=== PATIENT | male | born 1955 | race Caucasian/White ===

== ENCOUNTER → 2018-01-28 | Outpatient (CLI) | payer OTHER ==
[2016-10-27 11:06] VITALS: BMI 31.1
[~2018-01-28] MED LIST: ALB18R INH; AMOX-559 PO; ASPI-1471 PO; ASPI81TA94 PO; ATR80PT PO; AZAT50TA25 PO; BAC PO; BUDE10.25 IH; BUDE10.25 INH; CEFU500T10 PO; CLOP75TA PO; CYCL10TA29 PO; DOC100 PO; ESZO1TAB16 PO; FAMO20TA28 PO; FLUT16SP19 NS; FOL1 PO; FURO-45 PO; GABA-549 PO; GLIP-152 PO; HYDR-4309 PO; IPRA4AER IH; IPRA4AER INH; KET10 PO; LEVE-14 PO; LEVO-85 PO; LEVO750T25 PO; LEVO750T27 PO; LISI2.5T60 PO; LOR5 PO; MECL25TA9 PO; METF-1 PO; METH-541 PO; METH2.5T43 PO; METO25TA23 PO; MULT1CAP41 PO; NIT4 SL; NYST15CR32 TP; OMEG-11 PO; PANT40TA65 PO; PRE1 PO; PRE5 PO; PRED-1 PO; PRED-317; PROSED DS PO; SAXA1TBM6 PO; SAXA5TAB4 PO; SITA100T PO; SULF-198 PO; VALA500T66 PO; ZOLP-358 PO
== END ==
LOC: LAB 10:32
PROVIDERS: ATTEND Internal Medicine Rheumatology
DX: M31.30 Wegener's granulomatosis without renal involvement (principal); Z79.899 Other long term (current) drug therapy
CPT/HCPCS: 36415; 82040; 82247; 82310; 82374; 82435; 82565; 82947; 84075; 84132; 84155; 84295; 84450; 84460; 84520; 85027; 85651; 86140

== ENCOUNTER → 2018-02-06 | Outpatient (CLI) | payer OTHER ==
[2016-10-27 11:06] VITALS: BMI 31.1
--- NOTE | 2018-02-06 13:38 | RADIOLOGY IMAGING REPORT ---
FACILITY: [facility] PATIENT NAME: Harsh Melissa : 1955 MR: [id number] V: [id number] EXAM DATE: [id number] ORDERING PHYSICIAN: SHANNA MITCHELL TECHNOLOGIST: Location: [facility] - [place], [place] Patient: Harsh Melissa : 1955 Visit/Account:[id number] Date of Sevice: 02/06/2018 Exam type: LUMBAR SPINE 2 OR 3 VIEW History: low back pain, fall three weeks ago Comparison: July 19, 2007. Findings: Five nonrib-bearing lumbar-type vertebral bodies present. There is no evidence of acute fractures or subluxations. There is mild disc space narrowing at L5-S1. There is spondylolysis at L5 with a min imal 3 mm anterior listhesis of L5 with respect S1. No evidence of acute fractures. Incidentally no faye are vascular calcifications in the abdominal aorta IMPRESSION: 1. Mild degenerative changes the lumbar spine as described with no evidence of acute fracture. Report Dictated By: Mirna Morelos MD at 02/06/2018 1:31 PM Report E-Signed By: Mirna Morelos MD at 02/06/2018 1:33 PM WSN:[id number]
== END ==
LOC: LAB 11:24
PROVIDERS: ATTEND Internal Medicine
DX: M31.30 Wegener's granulomatosis without renal involvement (principal); I10 Essential (primary) hypertension; E78.5 Hyperlipidemia, unspecified; E11.9 Type 2 diabetes mellitus without complications
CPT/HCPCS: 36415; 72100; 82040; 82247; 82310; 82374; 82435; 82565; 82947; 83036; 84075; 84132; 84155; 84295; 84450; 84460; 84520

== ENCOUNTER 2018-02-20 13:45 | Outpatient (RCR) | payer OTHER ==
[2016-10-27 11:06] VITALS: BMI 31.1
--- NOTE | 2018-02-08 10:28 | PT INITIAL EVALUATION ---
MEDICAL DIAGNOSIS: Lumbosacral pain, Branden's Granulomatosis TREATMENT DIAGNOSIS: Lumbar pain, Generalized Deconditioning DATE OF ONSET: 01/17/18 SUBJECTIVE: Harsh is a 62 year-old male presenting to physical therapy following the onset of low back pain over the last three weeks. Pt reports that he slipped in his driveway and following had back pain rated at a 7/10. He initially went to the chiropractor which seemed to not help his pain. He was then referred to a physician for imaging which revealed no fracture. Pt is currently avoiding all pain increasing positions such as bending forward to tie his shoes, lifting any objects or any quick movements with his back. Pain is rated at 2/10 currently spanning across his low back and to his R PSIS. Pain is described as achy and stiff feeling, but is occasionally sharp and goes into his hip. Pt has a history of Maryan's Granulomatosis, as well as several cardiac problems, DM and a history of seizures. Pt reports gradual weight gain with inactivity. Pt was previously in the cardiac rehabilitation program and reported improved cardiac function, as well as glucose control with aerobic exercise. 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 ROM: Lumbar ROM: Flexion: full without pain, ext: minimal restrictions without pain, R SB: minimally restricted with pain, L SB: full without pain, B Rotation : full without pain Special Tests: Ivett Lumbar Screen: Flexion: pain moved laterally to R hip with change from dull to sharp, extension: pain centralized to L3 region. Gait: Pt ambulates with mild reverse Trendelenburg gait with lateral trunk movement. ASSESSMENT: Pt shows signs and symptoms consistent with generalized deconditioning as well as posterior lumbar derangement. Physical therapy is indicated for this patient to improve the above listed deficits to improve pt mobility and function with ADL's. Short Term Goals In 3 weeks pt will centralize pain to the lumbar spine only without radiation for increased function with ADL's. In 6 weeks pt will have no low back pain for improved function with ADL's. In 6 weeks pt will be independent with HEP for management of lumbar mobility and function for maintenance of functional status. Patient's Goals Decrease pain, improve mobility PLAN: Patient to be seen for Manual Therapy/STM/MET Strengthening/condition Ice/Heat Range of Motion Spinal Stabilization Ultrasound Stretching Iontophoresis Neuromuscular Re-ed Closed Chain Program Electrical Stim Posture/Body mechanics Gait Trg/Balance Trg Biofeedback Home Exercise Program Mech./Manual Traction Therapeutic Activities Pelvic Floor 3x/Week for 6 Weeks If you have any questions, comments, or concerns about this report or plan, please contact me at . Thank you, Evonne Caldwell, PT, DPT, CLT MTDD
--- NOTE | 2018-03-08 11:26 | PT PLAN OF CARE ---
Physician: Yung Campoverde MD Patient is being seen: 2-3x/Week Therapist: Evonne Caldwell, PT, DPT, CLT Medical Diagnosis: Lumbosacral pain, Branden's Granulomatosis Treatment Diagnosis: Lumbar pain, Generalized Deconditioning Date of Onset: 01/17/18 Date of Initial Evaluation: 02/07/18 Date patient was last seen: 02/20/18 Number of treatments: 5 Number of cancellations/No shows: 0 INTERVENTIONS: Manual Therapy/STM/MET Strengthening/condition Ice/Heat Range of Motion Spinal Stabilization Ultrasound Stretching Iontophoresis Neuromuscular Re-ed Closed Chain Program Electrical Stim Posture/Body mechanics Gait Trg/Balance Trg Biofeedback Home Exercise Program Mech./Manual Traction Therapeutic Activities Pelvic Floor GOALS: In 3 weeks pt will centralize pain to the lumbar spine only without radiation for increased function with ADL's. In 6 weeks pt will have no low back pain for improved function with ADL's. In 6 weeks pt will be independent with HEP for management of lumbar mobility and function for maintenance of functional status. PATIENT'S GOAL: Decrease pain, improve mobility Status of Patient's Goals: 3/3 MET Patient Compliance: Good Prognosis: Good Reasons for discharge from therapy: Ross is to discharge from physical therapy at this time secondary to patient preference as well as completion of 3/3 functional goals. At the time of discharge pt reported no pain with return to function with ADL's. Pt is to continue with HEP if any pain persists or returns as well as maintain postural correction awareness with ADL's. Posture: Pt has decreased lumbar curve with forward trunk lean in static stance. ROM: Lumbar ROM: Full in all ROM without pain If you have any questions or concerns, please feel free to contact me at . Thank you, Evonne Caldwell, PT, DPT, CLT MTDD
== END 2018-02-20 18:00 | disposition home or self-care (01) ==
LOC: PT 13:45
PROVIDERS: ATTEND Internal Medicine
DX: M31.30 Wegener's granulomatosis without renal involvement (principal); M54.5 Low back pain; E11.9 Type 2 diabetes mellitus without complications; Z86.69 Personal history of other diseases of the nervous system and sense organs
CPT/HCPCS: 97162

== ENCOUNTER → 2018-06-10 | Outpatient (CLI) | payer OTHER ==
[2016-10-27 11:06] VITALS: BMI 31.1
[~2018-06-10] MED LIST changes: +METF500T4 PO
== END ==
LOC: LAB 08:37
PROVIDERS: ATTEND Internal Medicine Rheumatology
DX: M31.30 Wegener's granulomatosis without renal involvement (principal); Z79.899 Other long term (current) drug therapy
CPT/HCPCS: 36415; 82040; 82247; 82310; 82374; 82435; 82565; 82947; 83516; 84075; 84132; 84155; 84295; 84450; 84460; 84520; 85651; 86140

== ENCOUNTER → 2018-06-10 | Outpatient (CLI) | payer OTHER ==
[2016-10-27 11:06] VITALS: BMI 31.1
[2018-06-10 09:21] LABS: PLATELET COUNT, AUTOMATED 126 K/uL (150-450)
== END ==
LOC: LAB 08:34
PROVIDERS: ATTEND Internal Medicine
DX: I35.0 Nonrheumatic aortic (valve) stenosis (principal); I10 Essential (primary) hypertension; E78.5 Hyperlipidemia, unspecified; R56.9 Unspecified convulsions; M31.30 Wegener's granulomatosis without renal involvement; E11.9 Type 2 diabetes mellitus without complications
CPT/HCPCS: 81001; 82465; 83036; 83718; 84443; 84478; 85025

== ENCOUNTER 2018-07-06 07:32 | Emergency (ER) | payer OTHER ==
[2016-10-27 11:06] VITALS: Wt 93.0 kg
--- NOTE | 2018-07-06 07:37 | ER Report ---
History and Physical Time Seen By MD: 07:50 HPI/ROS CHIEF COMPLAINT: Right-sided neck pain HISTORY OF PRESENT ILLNESS: Patient is a 62-year-old male who presents the emergency department complaining of right-sided neck pain worse with movement. Patient states symptoms began approximately 3 days ago but his significant discomfort started last evening into this morning. He was seen by his primary care provider for routine health check yesterday but because the neck pain was not as severe so he did not mention it. Patient states pain radiates somewhat up the neck into the base of the skull on the right side. He denies any numbness or tingling down into the left arm. Denies any traumatic injury. States he's had similar episodes of neck pain in the past but not as severe. He denies any chest pain or shortness of breath at this time. Denies any abdominal pain. REVIEW OF SYSTEMS: Respiratory: No cough, no dyspnea. Cardiovascular: No chest pain, no palpitations. Gastrointestinal: No vomiting, no abdominal pain. Musculoskeletal: No back pain. Right-sided posterior neck pain Allergies: Coded Allergies: metformin (Verified Allergy, Severe, Lactic acidosis, 07/06/18) 10/24/16 Home Meds Active Scripts Cyclobenzaprine Hcl (CYCLOBENZAPRINE HCL) 10 Mg Tablet, 10 MG PO TID for Muscle Relaxant, #9 TAB 0 Refills Prov:SWATI SKINNER MD 07/06/18 Oxycodone Hcl/Acetaminophen (PERCOCET 5-325 MG TABLET) 1 Each Tablet, 1 EACH PO Q6H for PAIN, #12 TAB 0 Refills Prov:SWATI SKINNER MD 07/06/18 Gabapentin (GABAPENTIN) 300 Mg Capsule, 300 MG PO BID Y for PAIN, #180 CAPSULE 1 Refill Prov:SHANNA MITCHELL MD 06/27/18 Prednisone 10 Mg Tab (PREDNISONE 10 MG TAB) 10 Mg Tablet, 9 MG PO QDAY, #1 TAB Prov:SHANNA MITCHELL MD 06/14/18 Metformin Hcl (METFORMIN HCL ER) 500 Mg Tab.er.24, 2 TAB PO QDAY, #60 TAB 3 Refills Prov:SHANNA MITCHELL MD 06/14/18 Sitagliptin Phosphate (JANUVIA) 100 Mg Tablet, 100 MG PO QDAY, #90 TAB 4 Refills Prov:SHANNA MITCHELL MD 03/25/18 Atorvastatin (LIPITOR) 80 Mg Tab, 1 TAB PO QDAY, #90 TAB 3 Refills Prov:SHANNA MITCHELL MD 02/06/18 Ipratropium/Albuterol Sulfate (COMBIVENT RESPIMAT INHAL SPRAY) 4 Gm Aer.w.adap, 1 PUFF IH QID Y for SHORTNESS OF BREATH, #2 INHALER 6 Refills Prov:SHANNA MITCHELL MD 11/08/17 Reported Medications Clopidogrel Bisulfate (PLAVIX) 75 Mg Tablet, 1 TAB PO QDAY, TAB 07/06/18 Metoprolol Succinate (METOPROLOL SUCCINATE) 25 Mg Tab.er.24h, 1 TAB PO QDAY, TAB 11/07/17 Levetiracetam (KEPPRA) 500 Mg Tablet, 500 MG PO BID, TAB 07/11/17 Glipizide (GLIPIZIDE) 5 Mg Tablet, 5 MG PO BID 07/11/17 Sulfamethoxazole/Trimet 800-160 Mg Tab (BACTRIM DS TABLET) 1 Each Tablet, 1 TAB PO M,W,F, TAB 07/11/17 Azathioprine (AZATHIOPRINE) 50 Mg Tablet, 50 MG PO DIRECTED 50 mg 2 tablets in the morning and 1.5 tablets in the evening 07/11/17 Aspirin (ASPIRIN) 81 Mg Tab.chew, 81 MG PO QDAY, TAB.CHEW 07/11/17 Discontinued Reported Medications Pantoprazole Sodium (PANTOPRAZOLE SODIUM) 40 Mg Tablet.dr, 40 MG PO QDAY, TAB.SR 07/11/17 Azathioprine (AZATHIOPRINE) 50 Mg Tablet, 100 MG PO QPM 07/11/17 Discontinued Scripts Budesonide/Formoterol Fumarate (SYMBICORT 80-4.5 MCG INHALER) 10.2 Gm Hfa.aer.ad , 2 PUFF IH BID, #1 INHALER 6 Refills Prov:SHANNA MITCHELL MD 11/07/17 Past Medical/Surgical History Patient has a past medical history for Branden's granulomatosis with polyangiitis and he is being followed by rheumatology currently on azathioprine and prednisone. History of obstructive sleep apnea currently using CPAP with oxygen. History of pulmonary hypertension, history of severe aortic valve stenosis is gone through TAVR in March 2018. He also has heart block and underwent permanent pacer placement. History of coronary artery disease with CABG in 2014 early undergoing cardiac rehabilitation. History of non-insulin- dependent diabetes, diabetic neuropathy, congestive heart failure with diastolic dysfunction, hyperlipidemia Hx Smoking: No Smoking Status: Former Smoker Exposure to Second Hand Smoke?: No Hx Substance Use Disorder: No Hx Alcohol Use: Yes Constitutional Vital Sign - Last 24 Hours 07/06/18 07/06/18 07/06/18 07/06/18 07:38 07:45 08:00 08:15 Temp 98.7 Pulse 85 Resp 18 B/P (MAP) 148/89 152/93 (112) 145/89 (107) 140/83 (102) Pulse Ox 90 90 90 O2 Delivery Room Air 07/06/18 07/06/18 08:30 08:45 B/P (MAP) 139/88 (105) 143/85 (104) Pulse Ox 85 87 Physical Exam General Appearance: The patient is alert, has no immediate need for airway protection and no current signs of toxicity. Eyes: Pupils equal and round no injection. Respiratory: Chest is non tender, lungs are clear to auscultation. Cardiac: regular rate and rhythm Musculoskeletal: Neck: Neck is noted for some stiffness particularly along the right paracervical group and right trapezius. No midline tenderness or bony tenderness appreciated Extremities have full range of motion and are non tender. Skin: No rashes or lesions. Medical Decision Making ED Course/Re-evaluation ED Course 07/06/2018 7:55:55 am patient with right-sided neck pain plan will be imaging of cervical spine CT. We'll give one Percocet for pain at this time. Decision to Disposition Date: Jul 06, 2018 Decision to Disposition Time: 08:48 Depart Departure Latest Vital Signs Vital Signs Date Time Temp Pulse Resp B/P (MAP) Pulse Ox O2 Delivery O2 Flow Rate FiO2 07/06/18 08:45 143/85 (104) 87 07/06/18 07:38 98.7 85 18 Room Air Impression: Primary Impression: Neck pain Condition: Improved Disposition: HOME OR SELF-CARE Referrals: SHANNA MITCHELL MD (PCP) 2 Days if symptoms persist New Scripts Cyclobenzaprine Hcl (CYCLOBENZAPRINE HCL) 10 Mg Tablet 10 MG PO TID for Muscle Relaxant, #9 TAB 0 Refills Prov: SWATI SKINNER MD 8/11/18 Oxycodone Hcl/Acetaminophen (PERCOCET 5-325 MG TABLET) 1 Each Tablet 1 EACH PO Q6H for PAIN, #12 TAB 0 Refills Prov: SWATI SKINNER MD 07/06/18 Patient Instructions: Acute Neck Pain (ED) SWATI SKINNER MD Jul 06, 2018 07:37
[2018-07-06] MEDS ORDERED: CLOP75TA43 PO (07:43)
--- NOTE | 2018-07-06 08:40 | RADIOLOGY IMAGING REPORT ---
FACILITY: [facility] [place] PATIENT NAME: Harsh Melissa : 1955 MR: [id number] V: [id number] EXAM DATE: ORDERING PHYSICIAN: SWATI SKINNER TECHNOLOGIST: Location: [facility] Patient: Harsh Melissa : 1955 Visit/Account:[id number] Date of Sevice: 07/06/2018 EXAMINATION: CT cervical spine without IV contrast HISTORY: Neck pain for 3 days. COMPARISON: CT cervical spine from 02/07/2016. TECHNIQUE: Axial images were obtained from the skull base through the upper thoracic spine without I V contrast administration. Coronal and sagittal reformatted images were obtained from the axial [facility] e data. One of the following dose optimization techniques was utilized in the performance of this exam: Autom ated exposure control; adjustment of the mA and/or kV according to the patient's size; or use of an i terative reconstruction technique. Specific details can be referenced in the facility's radiology C T exam operational policy. FINDINGS: Alignment: Normal. Cranio-cervical junction: Negative. Vertebral bodies: Negative. Posterior elements: Negative. Hardware: None. Disc spaces: Mild anterior bony spurring at C5-6. There is no obvious disc herniation by CT. Soft tissues: Atherosclerotic calcifications of the great vessels and bilateral carotid bulbs. Pacema ker wires partly visualized in the left upper chest. Visualized upper chest: Negative. IMPRESSION: 1. No acute fracture of the cervical spine. 2. Mild degenerative disc disease at C5-6, unchanged. Report Dictated By: Gladys Hdz MD at 07/06/2018 8:27 AM Report E-Signed By: Gladys Hdz MD at 07/06/2018 8:36 AM WSN:[id number]
[2018-07-06 08:45] VITALS: BP 143/85
[2018-07-06] MEDS ORDERED: CYCL10TA29 PO (08:50)
[2018-07-06] MEDS ORDERED: OXYC-865 PO (08:50)
== END 2018-07-06 08:55 | disposition home or self-care (01) ==
LOC: ER 07:35
DX: M54.2 Cervicalgia (principal); I11.0 Hypertensive heart disease with heart failure; I50.30 Unspecified diastolic (congestive) heart failure; E11.9 Type 2 diabetes mellitus without complications; G47.33 Obstructive sleep apnea (adult) (pediatric); I25.10 Atherosclerotic heart disease of native coronary artery without angina pectoris; E78.5 Hyperlipidemia, unspecified; Z95.1 Presence of aortocoronary bypass graft; Z95.0 Presence of cardiac pacemaker; Z87.891 Personal history of nicotine dependence; Z79.82 Long term (current) use of aspirin; Z79.84 Long term (current) use of oral hypoglycemic drugs; Z79.899 Other long term (current) drug therapy
CPT/HCPCS: 72125; 99284

== ENCOUNTER 2018-07-15 09:48 | Outpatient (RCR) | payer OTHER ==
[2016-10-27 11:06] VITALS: BMI 31.1
[2018-04-17 15:23] VITALS: BP_SYST 112; BP_SYST 124; BP_DIAS 72; BP_DIAS 78
--- NOTE | 2018-04-17 16:01 | CARDIAC REHAB PLAN OF CARE ---
Physician: MD [facility]in[facility] Patient is being seen: Radha Yulisa Medical Diagnosis: CABG x3; PTCA x2; TAVR; Pacemaker Date of Initial Evaluation: 04/17/18 INTERVENTIONS: SHORT TERM GOALS Short Term Goals Due Date: 05/18/18 Short Term Goals: Over the next month, it will be the patient's goal to increase exercise time and overall tolerance. He will begin with a total of at least 20 minutes of continuous exercise and progress towards achieving the recommended 150 min/week. During this first month he should aim to maintain his HR between 95-110bpm so as not to push his cardiovascular system too hard following surgery. He will be limited to using the treadmill, walking the track , or cycling on the upright bike. After this month his HR target zone will be re-evaluated. Our second primary goal will be to help encourage and support the patient's dietary change. Since his surgery he has drastically changed his caloric consumption towards healthier nutritional options. I foresee this as a difficult task to maintain knowing his previous behavior and relatively unhealthy support system at home. We will do our best to help support this behavior change and provide any information he needs in regards to nutrition. Short Term Goals Met: Short Term Goals Not Met Due To: CLINICAL MATERIAL HANDLER GOALS Jail Goal Due Date: 06/17/18 Bond Writer Goals: residential goal through this program include increasing exercise duration towards a total of 150 min/week. Currently, he is exercising at an average of 2.5 METs and we hope to have the patient progress to the 3-6 MET range within the next few months. It was discussed with the patient that his goal during exercise here should be to progress a little bit every session --whether it is adding an additional minute to his exercise routine or increasing the resistance 0.5%. He should always try to progress to reap the maximal benefits. During this program it is also our goal to help instill and promote healthy behavior change at home. This includes but is not limited to leisure time physical activity, healthy nutritional options, and stress management. Bond Writer Goals Met: Bond Writer Goals Not Met Due To: PATIENT'S GOALS Patient Goals Due Date: 05/18/18 Patient Goals: Over the course of this program the patient has two primary goals. 1. To lose weight. He is currently 203lbs and aims to weigh 180lbs. This can easily be attained by his drastic healthier diet change and with the increase he will experience in physical activity here at cardiac rehab. 2. To be able to fernandez this next fall.He currently gets breathless while climbing stairs and would like to have this breathlessness subside so he can hike whilst elk hunting this fall. Patient Goals Met: Patient Goals Not Met Due To: Cardiac Rehabilitation Plan of Care Comment: Our plan for the current patient will be to encourage and provide support to help instill healthy behavior roll changer the next 3 months. During his sessions we will continue to monitor BP, HR, and SPO2 as well as his subjective feedback in order to create and individualized exercise prescription. We will use this information to help direct him towards exercise progression in each visit by promoting increases in intensity, time, or overall duration. We will provide him with information towards increasing his understanding of leisure time physical activity and healthy dietary options. VICTOR MANUEL
[2018-04-24 13:10] VITALS: BP_SYST 115; BP_SYST 126; BP_DIAS 60; BP_DIAS 74
[2018-04-26 13:16] VITALS: BP 134/68
[2018-04-26 13:17] VITALS: BP 120/70
[2018-04-29 13:24] VITALS: BP_SYST 120; BP_SYST 130; BP_DIAS 64; BP_DIAS 68
[2018-05-03 11:45] VITALS: BP_SYST 120; BP_SYST 128; BP_DIAS 70; BP_DIAS 78
[2018-05-06 12:58] VITALS: BP 118/66
[2018-05-06 12:59] VITALS: BP 118/68
[2018-05-08 11:16] VITALS: BP 128/76
[2018-05-08 11:21] VITALS: BP 128/74
[2018-05-13 13:38] VITALS: BP 120/72
[2018-05-13 13:39] VITALS: BP 120/68
[2018-05-15 13:17] VITALS: BP 122/72
[2018-05-15 13:18] VITALS: BP 122/68
[2018-05-22 11:41] VITALS: BP 122/66
[2018-05-22 11:42] VITALS: BP 132/80
[2018-05-24 13:13] VITALS: BP 120/72
[2018-05-24 13:14] VITALS: BP 124/70
[2018-05-27 13:12] VITALS: BP 122/72
[2018-05-27 13:13] VITALS: BP 122/72
[2018-05-31 13:43] VITALS: BP 128/68
[2018-05-31 13:44] VITALS: BP 134/80
--- NOTE | 2018-06-04 13:13 | CARDIAC REHAB PLAN OF CARE ---
Physician: Walter Bean MD Patient is being seen: Yulisa Garcia Medical Diagnosis: CABG x3; PTCA x2; TAVR; Pacemaker Date of Initial Evaluation: 04/17/2018 Date patient was last seen: 05/31/2018 Number of treatments: 13 INTERVENTIONS: SHORT TERM GOALS Short Term Goals Due Date: 07/05/18 Short Term Goals: Over the next month, the patient's goal will be to continue increasing total exercise duration per session. He will try to achieve on average 50 min/session so as to attain the recommended 150min/week. To do this we will also encourage more time spent walking the track, trying to achieve at least 12 laps/session. At some point during this past month, the patient also stopped using the treadmill and has started using the NuStep instead. We will encourage him to go back to the treadmill, or at least spend more time on the bike than the NuStep in comparison. We will also touch base with the patient more frequently on how his dietary behavior change is going and provide any additional education or support as needed. Short Term Goals Met: Patient has been able to maintain at least 20 minutes of continuous aerobic exercise with a total achievement of 40 min/session. If he maintains this level of exercise then this will total to 120 minutes/week which is close to our net goal which is 150 minutes/week. During his exercise, he does a good job at maintaining his HR goal between 95- 110bpm, as he is averaging his HR near 103-108bpm. Short Term Goals Not Met Due To: Currently, we are unaware of any behavior change as to improving dietary intake. Also, the patient has not been able to maintain 40 min/session regularly. For a week he has backed his total exercise time back to 20-30 minutes until more recently when he has been achieving 40 minutes again. He also was typically taking 10-12 laps on the track during exercise sessions, but has recently backed down to 5 laps/session. 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 Currently, he is exercising at an average of 2.5 METs and we hope to have the patient progress to the 3-6 MET range within the next few months. It was discussed with the patient that his goal during exercise here should be to progress a little bit every session --whether it is adding an additional minute to his exercise routine or increasing the resistance 0.5%. He should always try to progress to reap the maximal benefits. During this program it is also our goal to help instill and promote healthy behavior change at home. This includes but is not limited to leisure time physical activity, healthy nutritional options, and stress management. Wastewater Design Engineer Goals Met: Mcfp Goals Not Met Due To: PATIENT'S GOALS Patient Goals Due Date: 07/05/18 Patient Goals: Over the course of this program the patient has two primary goals. 1. To lose weight. He is currently 203lbs and aims to weigh 180lbs. This can easily be attained by his drastic healthier diet change and with the increase he will experience in physical activity here at cardiac rehab. 2. To be able to fernandez this next fall.He currently gets breathless while climbing stairs and would like to have this breathlessness subside so he can hike whilst elk hunting this fall. Patient Goals Met: No patient goal information available at this time. We will ask the patient upon his next visit how his weight loss goals are progressing as well as any feedback he has on his own perception towards his ability to fernandez this fall. Patient Goals Not Met Due To: No patient goal information available at this time. Cardiac Rehabilitation Plan of Care Comment: Over the next month, we will continue to evaluate the patient's progress regularly so as to develop an individualized exercise prescription and continue along the path towards progression. We will use information gather at each sessions including BP, HR, SPO2, and exercise logs to help facilitate this process. Our primary goal will be to help encourage the patient to continue pushing himself a little bit further every session and to not take the easy route to exercise. We will need to educate him along this process that progression is parsons to heart health. In order to fulfill these needs we will need to develop a professional relationship with the patient so as to see where his needs need to be met. VICTOR MANUEL
[2018-06-05 13:20] VITALS: BP_SYST 122; BP_SYST 124; BP_DIAS 60; BP_DIAS 72
[2018-06-07 13:26] VITALS: BP 120/70
[2018-06-07 13:27] VITALS: BP 126/78
[2018-06-12 13:27] VITALS: BP 128/68
[2018-06-12 13:28] VITALS: BP 126/70
[2018-06-14 13:29] VITALS: BP 128/70
[2018-06-14 13:30] VITALS: BP 120/72
[2018-06-17 13:03] VITALS: BP_SYST 122; BP_SYST 132; BP_DIAS 80; BP_DIAS 82
[2018-06-19 13:24] VITALS: BP 120/64
[2018-06-19 13:25] VITALS: BP 122/74
[2018-06-21 13:36] VITALS: BP 128/82
[2018-06-22 16:40] VITALS: BP 130/82
[2018-06-24 16:41] VITALS: BP 126/68
[2018-06-24 16:44] VITALS: BP 130/82
[2018-06-26 15:49] VITALS: BP 124/94
[2018-06-26 15:50] VITALS: BP 138/72
[2018-06-28 13:11] VITALS: BP 116/64
[2018-06-28 13:12] VITALS: BP 128/76
[2018-07-01 13:11] VITALS: BP_SYST 122; BP_DIAS 66; BP_DIAS 78
--- NOTE | 2018-07-02 13:06 | CARDIAC REHAB PLAN OF CARE ---
Physician: MD [place] Patient is being seen: Yulisa Garcia Medical Diagnosis: CABG x3; PTCA x2; Pacemaker; TAVR Date of Initial Evaluation: 04/17/18 Date patient was last seen: 07/01/18 Number of treatments: 18 INTERVENTIONS: SHORT TERM GOALS Short Term Goals Due Date: 08/02/18 Short Term Goals: Over the next month, the patient's goal will be to continue increasing total exercise duration per session pending his SPO2 remains sufficient. He will try to achieve on average 50 min/session so as to attain the recommended 150min/week. Currently, the patient does a decent work out on the NuStep and enjoys using his arms with the exercise so we will continue with this mode of aerobic activity. To aid in his SPO2 deficit we will to continue educating him on proper breathing techniques. It has also been recommended to the patient that he goes to see his physician to check on his autoimmune disease status to see if that has affected his respiration. Lastly, we will also touch base with the patient more frequently on how his dietary behavior change is going and provide any additional education or support as needed. Short Term Goals Met: Patient has not met any of the fore-mentioned goals for exercise duration. He has maintained in his proper target heart rate zone (95- 110bpm) during exercise--averaging between 104-115. Short Term Goals Not Met Due To: Patient has been having difficulty with energy and shortness of breath the past three weeks. His SPO2 has been low and he has resorted to special breathing techniques and supplemental O2 to remain sufficient SPO2 levels during exercise. Due to this set back, it has been difficult for him to achieve his previous exercise duration goals. Patient also has been struggling to maintain a healthy diet the past month as family has been visiting and cooking for him. ALF GOALS Skilled Nursing Goal Due Date: 08/02/18 Skilled Nursing Goals: terminal gauger goal through this program include increasing exercise duration towards a total of 150 min/week. Currently, he is exercising at an average of 2.5 METs and we hope to have the patient progress to the 3-6 MET range within the next few months. It was discussed with the patient that his goal during exercise here should be to progress a little bit every session --whether it is adding an additional minute to his exercise routine or increasing the resistance 0.5%. He should always try to progress to reap the maximal benefits. During this program it is also our goal to help instill and promote healthy behavior change at home. This includes but is not limited to leisure time physical activity, healthy nutritional options, and stress management. Skilled Nursing Goals Met: The patient has gradually progress in total exercise duration. He is not achieving between 30-45 minutes/session and we will continue progressing time towards our goal of 150min/week (50 min/session). He has also achieved on average a MET level of 3.2-3.5. Which is within our target range. Now we will continue to progress closer to the 6 MET selena. Accountant Machine Processing Goals Not Met Due To: The patient has not been successful at developing healthy behavior change. We will continue to provide education and support on the topic, primarily addressing diet and breathing techniques. PATIENT'S GOALS Patient Goals Due Date: 08/02/18 Patient Goals: Over the course of this program the patient has two primary goals. 1. To lose weight. He is currently 203lbs and aims to weigh 180lbs. This can easily be attained by his drastic healthier diet change and with the increase he will experience in physical activity here at cardiac rehab. 2. To be able to fernandez this next fall.He currently gets breathless while climbing stairs and would like to have this breathlessness subside so he can hike wilst [employer] hunting this fall. Patient Goals Met: No goals have been met thus far. Patient Goals Not Met Due To: We are unaware of any weight loss on behalf of the patient, but will follow up at the next session. The patient has been continuing to hike and fish, but reports unreasonable breathlessness and lack of energy. We need to continue improving respiratory behaviors in order for him to improve his stamina for fall hunting season. Cardiac Rehabilitation Plan of Care Comment: Over the next month our plan will primarily be to educate our patient. We need to improve his understanding of breathing techniques and energy conservation in order to improve energy and facilitate his hunting/hiking ability for the fall. We will also supplement this with information on healthy diet and behavior change to help his heart and his energy. We will also make it a primary goal to continue improving in 1. duration of exercise towards 150min/week (50min/session) and once that is achieved 2. exercise intensity (improving from 3.5 METs). We will continue to individualize his exercise program by developing it based on his achieved HR, SPO2, BP, and ECG during exercise. VICTO RMANUEL
[2018-07-03 13:14] VITALS: BP_SYST 122; BP_DIAS 66; BP_DIAS 78
[2018-07-12 13:07] VITALS: BP_SYST 120; BP_SYST 138; BP_DIAS 66; BP_DIAS 82
[~2018-07-15 09:48] MED LIST changes: +CLOP75TA43 PO; +OXYC-865 PO
[2018-07-15 13:05] VITALS: BP_SYST 106; BP_SYST 126; BP_DIAS 76; BP_DIAS 78
== END 2018-07-16 ==
LOC: CARD 09:48
PROVIDERS: ATTEND Internal Medicine Cardiovascular Disease
DX: I50.9 Heart failure, unspecified (principal); I27.9 Pulmonary heart disease, unspecified; I25.2 Old myocardial infarction; Z95.1 Presence of aortocoronary bypass graft; Z95.5 Presence of coronary angioplasty implant and graft; Z95.0 Presence of cardiac pacemaker; R56.9 Unspecified convulsions
CPT/HCPCS: 93798

== ENCOUNTER 2018-08-14 10:00 | Outpatient (RCR) | payer OTHER ==
[2016-10-27 11:06] VITALS: BMI 31.1
[2018-07-17 14:27] VITALS: BP 122/70
[2018-07-17 14:28] VITALS: BP 120/76
[2018-07-22 13:27] VITALS: BP 124/70
[2018-07-22 13:28] VITALS: BP 140/80
[2018-07-24 13:48] VITALS: BP 112/68
[2018-07-24 13:49] VITALS: BP 122/78
[2018-07-26 13:34] VITALS: BP_SYST 116; BP_SYST 124; BP_DIAS 76; BP_DIAS 78
[2018-07-31 13:37] VITALS: BP_SYST 124; BP_SYST 130; BP_DIAS 74
[2018-08-09 12:50] VITALS: BP 122/62
[2018-08-09 12:52] VITALS: BP 106/62
[2018-08-12 12:42] VITALS: BP 132/72
[2018-08-12 12:43] VITALS: BP 138/78
[2018-08-14 13:12] VITALS: BP 124/70
[2018-08-14 13:13] VITALS: BP 118/62
== END 2018-08-14 15:41 | disposition home or self-care (01) ==
LOC: CARD 10:00
PROVIDERS: ATTEND Internal Medicine Cardiovascular Disease
DX: I50.9 Heart failure, unspecified (principal); I27.9 Pulmonary heart disease, unspecified; I25.2 Old myocardial infarction; Z95.1 Presence of aortocoronary bypass graft; Z95.5 Presence of coronary angioplasty implant and graft; Z95.0 Presence of cardiac pacemaker; R56.9 Unspecified convulsions
CPT/HCPCS: 93798

== ENCOUNTER → 2018-09-24 | Outpatient (CLI) | payer OTHER ==
[2016-10-27 11:06] VITALS: BMI 31.1
[~2018-09-24] MED LIST changes: -HYDR-4309 PO; +HYDR-653 PO
[2018-09-24 11:28] LABS: PLATELET COUNT, AUTOMATED 143 K/uL (150-450)
== END ==
LOC: LAB 11:02
PROVIDERS: ATTEND Internal Medicine
DX: E78.5 Hyperlipidemia, unspecified (principal); M31.30 Wegener's granulomatosis without renal involvement; I10 Essential (primary) hypertension; I27.20 Pulmonary hypertension, unspecified; G47.33 Obstructive sleep apnea (adult) (pediatric); E11.9 Type 2 diabetes mellitus without complications; Z95.2 Presence of prosthetic heart valve
CPT/HCPCS: 36415; 81001; 82040; 82043; 82247; 82306; 82310; 82374; 82435; 82465; 82565; 82947; 83036; 83718; 84075; 84132; 84153; 84155; 84295; 84443; 84450; 84460; 84478; 84520; 85025

== ENCOUNTER → 2018-09-26 | Outpatient (CLI) | payer OTHER ==
[2016-10-27 11:06] VITALS: BMI 31.1
[2018-09-26 12:06] LABS: PLATELET COUNT, AUTOMATED 139 K/uL (150-450)
== END ==
LOC: LAB 11:42
PROVIDERS: ATTEND Internal Medicine Rheumatology
DX: M31.30 Wegener's granulomatosis without renal involvement (principal); N28.9 Disorder of kidney and ureter, unspecified; Z79.899 Other long term (current) drug therapy
CPT/HCPCS: 36415; 81001; 82040; 82247; 82310; 82374; 82435; 82565; 82947; 84075; 84132; 84155; 84295; 84450; 84460; 84520; 85025; 85651; 86140; 86255

== ENCOUNTER → 2018-11-28 | Outpatient (CLI) | payer OTHER ==
[2016-10-27 11:06] VITALS: BMI 31.1
[~2018-11-28] MED LIST changes: +FLAS1EAC TD; +FLAS1EAC2 TD; +FLAS1KIT; +FLAS1KIT2; +FLU180SY11 IM; +GABA-503 PO; +MUPI15CR10 TP; +PNEI IJ; +REGADENOSON 0.4 MG/5 ML SYR ONE
--- NOTE | 2018-11-28 12:18 | RADIOLOGY IMAGING REPORT ---
FACILITY: [facility] PATIENT NAME: Harsh Melissa : 1955 MR: [id number] V: [id number] EXAM DATE: ORDERING PHYSICIAN: CRISELDA CROCKER TECHNOLOGIST: Location: [facility] [place] Patient: Harsh Melissa : 1955 Visit/Account:[id number] Date of Sevice: 11/28/2018 EXAMINATION: Single isotope SPECT imaging with regadenoson infusion and gated SPECT imaging. DATE OF EXAMINATION November 28, 2018. DATE OF INTERPRETATION: November 28, 2018. REQUESTING PHYSICIAN: CRISELDA CROCKER. INDICATION: The patient is a 62-year-old male evaluated for chest pain. PROCEDURE: After informed consent the patient received an intravenous injection of 12.4 mCi of Tc-99 m sestamibi followed at an appropriate time interval by rest imaging. The patient then subsequently received an intravenous infusion of 0.4 mg of regadenoson per protocol without complication. Resting heart rate was 81 bpm with a peak heart rate of 105 bpm. Blood pressure at rest was 131 / 76 and fo llowing infusion was 129 / 66. Baseline EKG demonstrates sinus rhythm with minor ST-T changes. Ther e were no EKG changes of ischemia following infusion. Symptoms were nonspecific. The patient then r eceived an intravenous injection of 29.2 mCi of Tc-99m sestamibi followed by stress imaging. RAW DATA: Examination of the summed raw data revealed a good quality study. MYOCARDIAL PERFUSION: The tomographic images demonstrate a mild degree of ischemia within a large ci rcumflex distribution.. GATED IMAGES: The gated images demonstrate normal wall motion and thickening. Calculated ejection fr action is 80%. IMPRESSION: 1. No ischemia identified on all echocardiogram. 2. Abnormal myocardial perfusion scan. Evidence of mild ischemia within a large circumflex distribut ion. 3. Normal LV systolic function; LVEF 80%. 4. Based on the results of this exam, the patient appears to be at intermediate risk for future cardi ovascular events. Report Dictated By: Hernan Welch at 11/28/2018 12:08 PM Report E-Signed By: Hernan Welch at 11/28/2018 12:13 PM WSN:[id number]
== END ==
LOC: NUC 01:35
PROVIDERS: ATTEND Internal Medicine Cardiovascular Disease
DX: I25.810 Atherosclerosis of coronary artery bypass graft(s) without angina pectoris (principal)
CPT/HCPCS: 78452; 93017; A9500; J2785

== ENCOUNTER → 2018-12-25 | Outpatient (CLI) | payer OTHER ==
[2016-10-27 11:06] VITALS: BMI 31.1
[~2018-12-25] MED LIST changes: -GABA-503 PO; +GABA-533 PO; -REGADENOSON 0.4 MG/5 ML SYR ONE
[2018-12-25 13:15] LABS: PLATELET COUNT, AUTOMATED 153 K/uL (150-450)
[2018-12-25 13:56] LABS: LDL CHOLESTEROL 18 mg/dl
== END ==
LOC: LAB 11:32
PROVIDERS: ATTEND Internal Medicine
DX: M31.30 Wegener's granulomatosis without renal involvement (principal); Z95.2 Presence of prosthetic heart valve; E78.5 Hyperlipidemia, unspecified; I10 Essential (primary) hypertension; I50.9 Heart failure, unspecified; I38 Endocarditis, valve unspecified; I25.10 Atherosclerotic heart disease of native coronary artery without angina pectoris; E11.9 Type 2 diabetes mellitus without complications
CPT/HCPCS: 36415; 81001; 82040; 82043; 82247; 82310; 82374; 82435; 82465; 82565; 82947; 83036; 83718; 84075; 84132; 84155; 84295; 84450; 84460; 84478; 84520; 85025

== ENCOUNTER → 2018-12-25 | Outpatient (CLI) | payer OTHER ==
[2016-10-27 11:06] VITALS: BMI 31.1
== END ==
LOC: LAB 11:38
PROVIDERS: ATTEND Internal Medicine Rheumatology
DX: M31.30 Wegener's granulomatosis without renal involvement (principal); Z79.899 Other long term (current) drug therapy; N28.9 Disorder of kidney and ureter, unspecified

== ENCOUNTER → 2019-02-12 | Outpatient (CLI) | payer OTHER ==
[2016-10-27 11:06] VITALS: BMI 31.1
[2019-02-12 12:54] LABS: PLATELET COUNT, AUTOMATED 151 K/uL (150-450)
== END ==
LOC: LAB 12:20
PROVIDERS: ATTEND Internal Medicine Rheumatology
DX: M31.30 Wegener's granulomatosis without renal involvement (principal); Z79.899 Other long term (current) drug therapy; N28.9 Disorder of kidney and ureter, unspecified
CPT/HCPCS: 36415; 85025

== ENCOUNTER 2019-03-10 10:00 | Outpatient (RCR) | payer OTHER ==
[2016-10-27 11:06] VITALS: BMI 31.1
[2018-12-13 12:27] VITALS: BP 108/70
[2018-12-13 12:28] VITALS: BP 110/78
[2018-12-18 13:20] VITALS: BP 116/72
[2018-12-18 13:21] VITALS: BP 122/68
[2018-12-20 17:01] VITALS: BP 112/70
[2018-12-20 17:02] VITALS: BP 112/62
[2018-12-23 17:04] VITALS: BP 122/62
[2018-12-23 17:06] VITALS: BP 128/76
[2018-12-25 16:58] VITALS: BP 120/70
[2018-12-25 17:00] VITALS: BP 108/62
[2019-01-01 13:46] VITALS: BP_SYST 120; BP_SYST 130; BP_DIAS 68; BP_DIAS 76
[2019-01-03 13:15] VITALS: BP 112/78
[2019-01-03 13:16] VITALS: BP 108/94
[2019-01-06 17:48] VITALS: BP 118/72
[2019-01-06 17:49] VITALS: BP 122/70
[2019-01-08 17:51] VITALS: BP 124/62
[2019-01-08 17:52] VITALS: BP 124/70
[2019-01-10 13:26] VITALS: BP_SYST 118; BP_SYST 130; BP_DIAS 70; BP_DIAS 80
[2019-01-15 13:10] VITALS: BP 118/72
[2019-01-15 13:11] VITALS: BP 130/64
[2019-01-17 17:39] VITALS: BP 120/78
[2019-01-17 17:40] VITALS: BP 122/82
[2019-01-20 13:43] VITALS: BP 122/70
[2019-01-20 13:44] VITALS: BP 118/62
[2019-01-24 13:35] VITALS: BP_SYST 118; BP_SYST 122; BP_DIAS 60; BP_DIAS 70
[2019-01-29 13:29] VITALS: BP_SYST 112; BP_SYST 118; BP_DIAS 64; BP_DIAS 70
[2019-02-01 09:44] VITALS: BP 124/69
[2019-02-01 09:47] VITALS: BP 108/70
[2019-02-07 13:37] VITALS: BP 110/62
[2019-02-07 13:38] VITALS: BP 128/73
[2019-02-10 13:39] VITALS: BP_SYST 130; BP_SYST 138; BP_DIAS 70; BP_DIAS 72
[2019-02-17 17:40] VITALS: BP 118/70
[2019-02-17 17:41] VITALS: BP 122/78
[2019-02-19 16:43] VITALS: BP 118/64
[2019-02-19 16:46] VITALS: BP 128/68
[2019-02-24 13:40] VITALS: BP 130/76
[2019-02-24 13:41] VITALS: BP 110/70
[2019-02-26 13:35] VITALS: BP 128/76
[2019-02-26 13:36] VITALS: BP 122/78
[2019-03-05 17:40] VITALS: BP 112/66
[2019-03-05 17:41] VITALS: BP 108/64
[2019-03-10 13:27] VITALS: BP 112/70
[2019-03-10 13:28] VITALS: BP 126/64
== END 2019-03-13 ==
LOC: CARD 10:00
PROVIDERS: ATTEND Internal Medicine Cardiovascular Disease
DX: Z95.5 Presence of coronary angioplasty implant and graft (principal)
CPT/HCPCS: 93798

== ENCOUNTER → 2019-03-26 | Outpatient (CLI) | payer OTHER ==
[2016-10-27 11:06] VITALS: BMI 31.1
[2019-03-26 12:04] LABS: PLATELET COUNT, AUTOMATED 167 K/uL (150-450)
== END ==
LOC: LAB 11:42
PROVIDERS: ATTEND Internal Medicine Rheumatology
DX: M31.30 Wegener's granulomatosis without renal involvement (principal); Z79.899 Other long term (current) drug therapy; N28.9 Disorder of kidney and ureter, unspecified
CPT/HCPCS: 36415; 81001; 82040; 82247; 82310; 82374; 82435; 82565; 82947; 84075; 84132; 84155; 84295; 84450; 84460; 84520; 85025; 86140; 86255

== ENCOUNTER → 2019-03-26 | Outpatient (CLI) | payer OTHER ==
[2016-10-27 11:06] VITALS: BMI 31.1
== END ==
LOC: LAB 11:39
PROVIDERS: ATTEND Internal Medicine Cardiovascular Disease
DX: I25.810 Atherosclerosis of coronary artery bypass graft(s) without angina pectoris (principal); I35.1 Nonrheumatic aortic (valve) insufficiency; E78.00 Pure hypercholesterolemia, unspecified; I50.33 Acute on chronic diastolic (congestive) heart failure; I44.2 Atrioventricular block, complete; M31.30 Wegener's granulomatosis without renal involvement
CPT/HCPCS: 82465; 83718; 84478

== ENCOUNTER → 2019-04-08 | Outpatient (CLI) | payer OTHER ==
[2016-10-27 11:06] VITALS: BMI 31.1
--- NOTE | 2019-04-08 12:18 | RADIOLOGY IMAGING REPORT ---
FACILITY: [facility] PATIENT NAME: Harsh Melissa : 1955 MR: [id number] V: [id number] EXAM DATE: ORDERING PHYSICIAN: SHAR BALLARD TECHNOLOGIST: Location: [facility] Patient: Harsh Melissa : 1955 Visit/Account:[id number] Date of Sevice: 04/08/2019 CT CHEST W/O CONTRAST History: Obstructive sleep apnea TECHNIQUE: Contiguous axial images were performed through the chest to the level of the adrenal gla nds. No IV contrast was administered. Coronal and sagittal reformatting was also performed.Dose Lower ing Technique One of the following dose optimization techniques was utilized in the performance of this exam: Autom ated exposure control; adjustment of the mA and/or kV according to the patient's size; or use of an i terative reconstruction technique. Specific details can be referenced in the facility's radiology C T exam operational policy. COMPARISON STUDIES: October 24, 2016. And October 18, 2016 . Lungs / Pleura: Previously noted 9 mm noncalcified pulmonary nodule in the right pulmonary apex is no longer seen. The previously noted 9 mm noncalcified pulmonary nodule also in the right upper lobe slightly inferi or to the first nodule is decreased in size now measuring 6 mm. This is best seen on image 26 of ser ies 3 Previous noted 4 mm intrafissural nodule in the minor fissure on the right appears unchanged and is b est seen on image 52 of series 3. There is a 2 mm intrafissural nodule in the major fissure on the right best seen on image 55 that rem ains unchanged The previously noted 1.3 cm nodule in the left upper lobe is no longer seen. There is a small area o f scarring now noted in this location Mediastinum/nodes: negative. Heart and vessels: There sternotomy sutures present and cardiac pacemaker leads.. There is a prosth etic aortic valve. Extensive coronary artery calcifications and/or stents again identified Musculoskeletal / Body wall: No aggressive appearing bone lesions are seen Upper abdomen: Visualized abdominal viscera negative. IMPRESSION: Previous noted pulmonary nodules are either stable or have resolved since the prior study. Small amount scarring is now identified in the left upper lobe Additional chronic findings as described Report Dictated By: Mirna Morelos MD at 04/08/2019 12:04 PM Report E-Signed By: Mirna Morelos MD at 04/08/2019 12:13 PM WSN:[id number]
== END ==
LOC: CT 00:46
PROVIDERS: ATTEND Internal Medicine
DX: G47.33 Obstructive sleep apnea (adult) (pediatric) (principal)
CPT/HCPCS: 71250

== ENCOUNTER 2019-04-18 10:00 | Outpatient (RCR) | payer OTHER ==
[2016-10-27 11:06] VITALS: BMI 31.1
[2019-03-14 17:18] VITALS: BP 130/64
[2019-03-14 17:22] VITALS: BP 140/78
--- NOTE | 2019-03-16 10:36 | CARDIAC REHAB PLAN OF CARE ---
Physician: Darin JACOBO Patient is being seen: Akira Sweet Medical Diagnosis: PCI stent x1, TAVR, CABG, PM Date of Initial Evaluation: 04/17/18, second phase II on 12/13/18 Short Term Goals Due Date: 03/16/19 Short Term Goals: Patient assessment: Patient returns to cardiac rehab for a second phase II program starting December 13, 2018. Cardiac history includes most recent PTCA x 2 LCX; TAVR; pacemaker, and prior to that a (2014) CABG. Medical history also includes diabetes, hypertension, hyperlipidemia, sleep apnea, prior seizures in January of 2016, Branden's or Granulomatosis with polyangiitis (formerly called Branden's) is a rare disease of uncertain cause that can affect people of all ages. It is characterized by inflammation in various tissues, including blood vessels (vasculitis), but primarily parts of the respiratory tract and the kidneys Exercise Assessment: Patient has been walking for some exercise, but has made good steady progress during phase II program increasing duration and intensity. Exercise Plan: Goals: Our goals are to improve conditioning with an increase in intensity and MET level and also add time. HIIT will also be introduced as the patient makes improvements and progress with the moderate level (3.0-6.0 MET level). Exercise Prescription: Mode: Walking and NuStep. Frequency: 3 days/week (MWF). We will incorporate physical activity on off day (). Duration: Start with 30 minutes and increase as the patient is comfortable. Intensity: Patient can start with at least a 3.0 MET level and make progress from there. Will include HIIT during the phase II program. Education: Education will focus on how to increase frequency and intensity of exercise and importance of that in regards to overall health and improved cardiac function. Exercise Reassessment (Date: ): Exercise Discharge/Follow-Up (Date: ): Nutrition Assessment: Patient needs to adjust diet to better follow a heart healthy diet, and to also adjust portions and inbetween meal food and beverage intake. Nutrition Plan: Goals: Primary goals will be to teach the patient the importance of the combination of diet with exercise to achieve the overall goal of better health. Intervention: Intervention will be to change out unhealthy foods with healthier options and work on portion control, while also reducing and improving snack and beverage options inbetween meal time. Education: The patient needs education as to why eating regularly is importantfor metabolism as well as making sure she receives proper nutrition through regular vitamins and nutrients from whole foods. Nutrition Reassessment (Date: ): Nutrition Discharge/Follow-Up (Date: ): Psychosocial Assessment: Patient seems adjusted and willing to improve health from all the health issues he is facing. Patients effort of exercise and positive results from that progress has also provided a positive mental outlook for his future health. Psychosocial Plan: Goals: Goals will include helping the patient maintain momentum with motivation and education with his health. Intervention: Intervention will be to help foster a safe enviroment for exercise while providing education and to continue to motivate the patient for off day exercise and proper dietary intake. Education: Education will focus on helping the patient understand the full benefits of exercise and diet working together to achieve health goals and improve quality of life. Psychosocial Reassessment (Date: ): Psychosocial Discharge/Follow-Up (Date: ): Physician Signature: Date: MTDD
[2019-03-17 17:28] VITALS: BP 122/58
[2019-03-17 17:30] VITALS: BP 122/80
[2019-03-21 13:10] VITALS: BP 114/72
[2019-03-21 13:11] VITALS: BP 138/76
[2019-03-24 13:03] VITALS: BP 118/74
[2019-03-24 13:04] VITALS: BP 138/82
[2019-03-26 12:36] VITALS: BP 122/82
[2019-03-26 12:37] VITALS: BP 118/70
[2019-03-28 13:11] VITALS: BP 108/70
[2019-03-28 13:13] VITALS: BP 122/66
[2019-04-02 13:24] VITALS: BP 124/70
[2019-04-02 13:26] VITALS: BP 126/62
[2019-04-04 12:59] VITALS: BP 112/68
[2019-04-04 13:00] VITALS: BP 112/62
[2019-04-07 13:02] VITALS: BP 122/60
[2019-04-07 13:03] VITALS: BP 118/60
[2019-04-11 17:54] VITALS: BP 112/72
[2019-04-11 17:55] VITALS: BP 122/74
[2019-04-14 17:14] VITALS: BP 120/70
[2019-04-14 17:15] VITALS: BP 126/70
[2019-04-16 17:05] VITALS: BP_SYST 120; BP_SYST 130; BP_DIAS 80; BP_DIAS 82
[2019-04-18 12:58] VITALS: BP_SYST 130; BP_SYST 134; BP_DIAS 76; BP_DIAS 80
[2019-04-25] MEDS ORDERED: FLAS1KIT (09:33)
[2019-04-25] MEDS ORDERED: FLAS1EAC TD (09:33)
== END 2019-04-18 18:00 | disposition home or self-care (01) ==
LOC: CARD 10:00
PROVIDERS: ATTEND Internal Medicine Cardiovascular Disease
DX: Z95.5 Presence of coronary angioplasty implant and graft (principal); E11.9 Type 2 diabetes mellitus without complications; I10 Essential (primary) hypertension; E78.5 Hyperlipidemia, unspecified; G47.30 Sleep apnea, unspecified
CPT/HCPCS: 93798

== ENCOUNTER → 2019-04-25 | Outpatient (CLI) | payer OTHER ==
[2016-10-27 11:06] VITALS: BMI 31.1
== END ==
LOC: US 02:17
PROVIDERS: ATTEND Internal Medicine Cardiovascular Disease
DX: I51.7 Cardiomegaly (principal); I34.0 Nonrheumatic mitral (valve) insufficiency; I36.1 Nonrheumatic tricuspid (valve) insufficiency; Z95.2 Presence of prosthetic heart valve; Z95.0 Presence of cardiac pacemaker
CPT/HCPCS: 93306

== ENCOUNTER → 2019-04-28 | Outpatient (CLI) | payer OTHER ==
[2016-10-27 11:06] VITALS: BMI 31.1
[2019-04-28 08:06] LABS: PLATELET COUNT, AUTOMATED 155 K/uL (150-450)
[2019-04-28 08:21] LABS: LDL CHOLESTEROL 31 mg/dl
== END ==
LOC: LAB 07:46
PROVIDERS: ATTEND Internal Medicine
DX: I35.0 Nonrheumatic aortic (valve) stenosis (principal); I10 Essential (primary) hypertension; E11.9 Type 2 diabetes mellitus without complications; E78.5 Hyperlipidemia, unspecified; G47.33 Obstructive sleep apnea (adult) (pediatric); Z95.2 Presence of prosthetic heart valve
CPT/HCPCS: 36415; 81001; 82040; 82247; 82310; 82374; 82435; 82465; 82565; 82947; 83036; 83718; 84075; 84132; 84155; 84295; 84443; 84450; 84460; 84478; 84520; 85025

== ENCOUNTER 2019-05-02 10:22 | Inpatient (IN) | payer OTHER ==
[2016-10-27 11:06] VITALS: Ht 180.3 cm; Wt 90.3 kg
[~2019-05-02] VITALS: Ht 180.3 cm; Wt 90.3 kg
[2019-05-02] MEDS ORDERED: NS(*) 0.9% 500 ML BAG 500 ML IV ONE (10:30)
[2019-05-02] MEDS ORDERED: ACETAMINOPHEN 500 MG TAB PO ONE (11:00)
[2019-05-02] MEDS ORDERED: ONDANSETRON 4 MG/2 ML VIAL IVP ONE (11:00)
--- NOTE | 2019-05-02 11:00 | EKG ---
FACILITY: [facility] PATIENT NAME: ROXANA KAY : [id number] MR: [id number] V: [id number] EXAM DATE: ORDERING PHYSICIAN: FRANCISCO LLANES TECHNOLOGIST: NGA Test Reason : SOB Blood Pressure : / mmHG Vent. Rate : 107 BPM Atrial Rate : 107 BPM P-R Int : 160 ms QRS Dur : 122 ms QT Int : 338 ms P-R-T Axes : 052 -62 050 degrees QTc Int : 451 ms Sinus tachycardia Left axis deviation Right bundle branch block Left ventricular hypertrophy with QRS widening and repolarization abnormality Inferior infarct (cited on or before 16-OCT-2016) Abnormal ECG When compared with ECG of 24-OCT-2016 07:29, T wave inversion no longer evident in Inferior leads T wave inversion no longer evident in Anterior leads Confirmed by CRISELDA KINNEY ([id number]) on 05/02/2019 4:02:02 PM Referred By: SHRADDHA Confirmed By:CRISELDA KINNEY
[2019-05-02 11:03] LABS: PLATELET COUNT, AUTOMATED 166 K/uL (150-450)
--- NOTE | 2019-05-02 11:06 | ER Report ---
History and Physical Time Seen By MD: 10:25 Hx. of Stated Complaint: PT REPORTS FEVER SYMPTOMS STARTED YESTERDAY: N/V, SOB, CHILLS, BODYACHES. 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 Cardiovascular: No chest pain, no palpitations. Gastrointestinal: No vomiting, no abdominal pain. Musculoskeletal: No back pain. Remainder of the 14 system rev: Yes Allergies: Coded Allergies: metformin (Verified Adverse Reaction, Severe, Lactic acidosis, 05/02/19) 10/24/16 Home Meds Active Scripts Flash Glucose Sensor (Freestyle Radha Sensor) 1 Each Kit, UNITS Q2WK, #2 12 Refills Prov:SHANNA MITCHELL MD 04/25/19 Flash Glucose Scanning [place] (Freestyle Radha [place]) 1 Each Each, UNIT TD DIRECTED, #2 Prov:SHANNA MITCHELL MD 04/25/19 Glipizide (GLIPIZIDE) 5 Mg Tablet, 1 TAB PO BID, #180 TAB 3 Refills Prov:SHANNA MITCHELL MD 04/08/19 Clopidogrel Bisulfate (PLAVIX) 75 Mg Tablet, 1 TAB PO QDAY, #90 TAB 3 Refills Prov:SHANNA MITCHELL MD 04/01/19 Budesonide/Formoterol Fumarate (SYMBICORT 80-4.5 MCG INHALER) 10.2 Gm Hfa.aer.ad, 2 PUFF IH BID, #1 INHALER 6 Refills Prov:SHANNA MITCHELL MD 02/10/19 Atorvastatin (LIPITOR) 80 Mg Tab, 1 TAB PO QDAY, #90 TAB 3 Refills Prov:SHANNA MITCHELL MD 02/05/19 Metformin Hcl (METFORMIN HCL ER) 500 Mg Tab.er.24, 2 TAB PO BID, #360 TAB 3 Refills Prov:SHANNA MITCHELL MD 01/02/19 Gabapentin (GABAPENTIN) 600 Mg Tablet, 600 MG PO BID, #180 TAB 2 Refills Prov:SHANNA MITCHELL MD 10/07/18 Mupirocin Calcium (BACTROBAN) 15 Gm Cream..g., 0 TP BID, #15 GM Prov:SHANNA MITCHELL MD 10/07/18 Prednisone 10 Mg Tab (PREDNISONE 10 MG TAB) 10 Mg Tablet, 10 MG PO QDAY, #1 TAB Prov:SHANNA MITCHELL MD 10/03/18 Cyclobenzaprine Hcl (CYCLOBENZAPRINE HCL) 10 Mg Tablet, 10 MG PO TID for Muscle Relaxant, #9 TAB 0 Refills Prov:SWATI SKINNER MD 07/06/18 Sitagliptin Phosphate (JANUVIA) 100 Mg Tablet, 100 MG PO QDAY, #90 TAB 4 Refills Prov:SHANNA MITCHELL MD 03/25/18 Ipratropium/Albuterol Sulfate (COMBIVENT RESPIMAT INHAL SPRAY) 4 Gm Aer.w.adap, 1 PUFF IH QID PRN for SHORTNESS OF BREATH, #2 INHALER 6 Refills Prov:SHANNA MITCHELL MD 11/08/17 Reported Medications Metoprolol Succinate (METOPROLOL SUCCINATE) 25 Mg Tab.er.24h, 1 TAB PO QDAY, TAB 11/07/17 Levetiracetam (KEPPRA) 500 Mg Tablet, 500 MG PO BID, TAB 07/11/17 Sulfamethoxazole/Trimet 800-160 Mg Tab (BACTRIM DS TABLET) 1 Each Tablet, 1 TAB PO M,W,F, TAB 07/11/17 Azathioprine (AZATHIOPRINE) 50 Mg Tablet, 50 MG PO DIRECTED 50 mg 2 tablets in the morning and 1.5 tablets in the evening 07/11/17 Aspirin (ASPIRIN) 81 Mg Tab.chew, 81 MG PO QDAY, TAB.CHEW 07/11/17 Reviewed Nurses Notes: Yes Old Medical Records Reviewed: Yes Hx Smoking: No Smoking Status: Former Smoker Exposure to Second Hand Smoke?: No Hx Substance Use Disorder: No Hx Alcohol Use: Yes Constitutional Vital Sign - Last 24 Hours 05/02/19 05/02/19 05/02/19 05/02/19 10:29 10:30 10:37 10:47 Temp 100.4 Pulse 111 107 Resp 26 B/P (MAP) 160/71 (100) 160/71 Pulse Ox 86 94 O2 Delivery Nasal Cannula O2 Flow Rate 3.0 05/02/19 05/02/19 05/02/19 05/02/19 10:52 11:22 11:27 11:30 Pulse 110 105 Resp 22 26 B/P (MAP) 127/70 (89) 124/66 (85) Pulse Ox 91 96 05/02/19 11:37 Pulse 105 Resp 20 Pulse Ox 93 Physical Exam General Appearance: [The patient is alert, has no immediate need for airway pr otection and no current signs of toxicity.] Appears ill Eyes: Injected sclera Respiratory: Chest is non tender, lungs are clear to auscultation other than some bibasilar crackles Cardiac: regular rate and rhythm [ ] Gastrointestinal: Abdomen is soft and non tender, no masses, bowel sounds normal. Musculoskeletal: Neck: Neck is supple and non tender. Extremities have full range of motion and are non tender. Skin: No rashes or lesions. [ ] DIFFERENTIAL DIAGNOSIS: After history and physical exam differential diagnosis was considered for pneumonia bronchitis influenza Medical Decision Making Data Points Result Diagram: 05/02/19 1040 05/02/19 1040 Laboratory Hematology Test 05/02/19 10:40 05/02/19 10:58 05/02/19 11:49 Red Blood Count 4.45 M/uL (4.00-5.60) Mean Corpuscular Volume 95.8 fL (80.0-96.0) Mean Corpuscular Hemoglobin 31.5 pg (26.0-33.0) Mean Corpuscular Hemoglobin Concent 32.9 g/dL (32.0-36.0) Red Cell Distribution Width 17.6 % (11.5-14.5) Mean Platelet Volume 7.7 fL (7.2-11.1) Neutrophils (%) (Auto) 80.5 % (39.4-72.5) Lymphocytes (%) (Auto) 14.8 % (17.6-49.6) Monocytes (%) (Auto) 3.5 % (4.1-12.4) Eosinophils (%) (Auto) 0.8 % (0.4-6.7) Basophils (%) (Auto) 0.4 % (0.3-1.4) Nucleated RBC Relative Count (auto) 0.1 /100WBC Neutrophils # (Auto) 7.9 K/uL (2.0-7.4) Lymphocytes # (Auto) 1.4 K/uL (1.3-3.6) Monocytes # (Auto) 0.3 K/uL (0.3-1.0) Eosinophils # (Auto) 0.1 K/uL (0.0-0.5) Basophils # (Auto) 0.0 K/uL (0.0-0.1) Nucleated RBC Absolute Count (auto) 0.01 K/uL Sodium Level 142 mmol/L (137-145) Potassium Level 4.9 mmol/L (3.5-5.0) Chloride Level 102 mmol/L (98-107) Carbon Dioxide Level 27 mmol/L (22-30) Blood Urea Nitrogen 19 mg/dl (9-21) Creatinine 1.10 mg/dl (0.66-1.25) Glomerular Filtration Rate Calc > 60.0 Random Glucose 160 mg/dl (75-110) Lactate 4.4 mmol/L (0.7-2.1) Calcium Level 9.2 mg/dl (8.4-10.2) Total Bilirubin 1.0 mg/dl (0.2-1.3) Aspartate Amino Transf (AST/SGOT) 29 U/L (0-35) Alanine Aminotransferase (ALT/SGPT) 55 U/L (0-56) Alkaline Phosphatase 88 U/L (0-126) Troponin I < 0.012 ng/ml B-Type Natriuretic Peptide 260 pg/ml (0-100) Total Protein 5.9 g/dl (6.3-8.2) Albumin 3.7 g/dl (3.5-5.0) Influenza Virus Type A (PCR) Negative (NEGATIVE) Influenza Virus Type B (PCR) Negative (NEGATIVE) Urine Color Yellow Urine Clarity Clear Urine pH 5.0 pH (4.8-9.5) Urine Specific [place] 1.017 Urine Protein Negative mg/dL (NEGATIVE) Urine Glucose (UA) 50 mg/dL (NEGATIVE) Urine Ketones Trace mg/dL (NEGATIVE) Urine Blood Negative (NEGATIVE) Urine Nitrite Negative (NEGATIVE) Urine Bilirubin Negative (NEGATIVE) Urine Urobilinogen Negative mg/dL (0.2-1.9) Urine Leukocyte Esterase Negative (NEGATIVE) Urine RBC 3 /HPF (0-2/HPF) Urine WBC 1 /HPF (0-5/HPF) Urine Squamous Epithelial Cells None /LPF (</=FEW) Urine Bacteria Negative /HPF (NONE-FEW) Urine Mucus Few /HPF (NONE-FEW) Chemistry Test 05/02/19 10:40 05/02/19 10:58 05/02/19 11:49 White Blood Count 9.8 k/uL (4.5-11.0) Red Blood Count 4.45 M/uL (4.00-5.60) Hemoglobin 14.0 g/dL (14.0-18.0) Hematocrit 42.6 % (42.0-52.0) Mean Corpuscular Volume 95.8 fL (80.0-96.0) Mean Corpuscular Hemoglobin 31.5 pg (26.0-33.0) Mean Corpuscular Hemoglobin Concent 32.9 g/dL (32.0-36.0) Red Cell Distribution Width 17.6 % (11.5-14.5) Platelet Count 166 K/uL (150-450) Mean Platelet Volume 7.7 fL (7.2-11.1) Neutrophils (%) (Auto) 80.5 % (39.4-72.5) Lymphocytes (%) (Auto) 14.8 % (17.6-49.6) Monocytes (%) (Auto) 3.5 % (4.1-12.4) Eosinophils (%) (Auto) 0.8 % (0.4-6.7) Basophils (%) (Auto) 0.4 % (0.3-1.4) Nucleated RBC Relative Count (auto) 0.1 /100WBC Neutrophils # (Auto) 7.9 K/uL (2.0-7.4) Lymphocytes # (Auto) 1.4 K/uL (1.3-3.6) Monocytes # (Auto) 0.3 K/uL (0.3-1.0) Eosinophils # (Auto) 0.1 K/uL (0.0-0.5) Basophils # (Auto) 0.0 K/uL (0.0-0.1) Nucleated RBC Absolute Count (auto) 0.01 K/uL Glomerular Filtration Rate Calc > 60.0 Lactate 4.4 mmol/L (0.7-2.1) Calcium Level 9.2 mg/dl (8.4-10.2) Total Bilirubin 1.0 mg/dl (0.2-1.3) Aspartate Amino Transf (AST/SGOT) 29 U/L (0-35) Alanine Aminotransferase (ALT/SGPT) 55 U/L (0-56) Alkaline Phosphatase 88 U/L (0-126) Troponin I < 0.012 ng/ml B-Type Natriuretic Peptide 260 pg/ml (0-100) Total Protein 5.9 g/dl (6.3-8.2) Albumin 3.7 g/dl (3.5-5.0) Influenza Virus Type A (PCR) Negative (NEGATIVE) Influenza Virus Type B (PCR) Negative (NEGATIVE) Urine Color Yellow Urine Clarity Clear Urine pH 5.0 pH (4.8-9.5) Urine Specific [place] 1.017 Urine Protein Negative mg/dL (NEGATIVE) Urine Glucose (UA) 50 mg/dL (NEGATIVE) Urine Ketones Trace mg/dL (NEGATIVE) Urine Blood Negative (NEGATIVE) Urine Nitrite Negative (NEGATIVE) Urine Bilirubin Negative (NEGATIVE) Urine Urobilinogen Negative mg/dL (0.2-1.9) Urine Leukocyte Esterase Negative (NEGATIVE) Urine RBC 3 /HPF (0-2/HPF) Urine WBC 1 /HPF (0-5/HPF) Urine Squamous Epithelial Cells None /LPF (</=FEW) Urine Bacteria Negative /HPF (NONE-FEW) Urine Mucus Few /HPF (NONE-FEW) Urinalysis Test 05/02/19 11:49 Urine Color Yellow Urine Clarity Clear Urine pH 5.0 pH (4.8-9.5) Urine Specific [place] 1.017 Urine Protein Negative mg/dL (NEGATIVE) Urine Glucose (UA) 50 mg/dL (NEGATIVE) Urine Ketones Trace mg/dL (NEGATIVE) Urine Blood Negative (NEGATIVE) Urine Nitrite Negative (NEGATIVE) Urine Bilirubin Negative (NEGATIVE) Urine Urobilinogen Negative mg/dL (0.2-1.9) Urine Leukocyte Esterase Negative (NEGATIVE) Urine RBC 3 /HPF (0-2/HPF) Urine WBC 1 /HPF (0-5/HPF) Urine Squamous Epithelial Cells None /LPF (</=FEW) Urine Bacteria Negative /HPF (NONE-FEW) Urine Mucus Few /HPF (NONE-FEW) ED Course/Re-evaluation ED Course 63-year-old male presented here sent here from outpatient care clinic as a ob vious infiltrate on x-ray with a lactic acid 4.4 I will start him on antibiotics has a febrile 102 this is true antipyretics patient be admitted diagnosis pneumonia and early sepsis Decision to Disposition Date: May 02, 2019 Decision to Disposition Time: 12:14 Depart Departure Latest Vital Signs Vital Signs Date Time Temp Pulse Resp B/P (MAP) Pulse Ox O2 Delivery O2 Flow Rate FiO2 05/02/19 11:37 105 20 93 05/02/19 11:30 124/66 (85) 05/02/19 10:47 3.0 05/02/19 10:30 100.4 Nasal Cannula Impression: Primary Impression: Pneumonia Condition: Improved Disposition: Admitted from ER Referrals: SHANNA MITCHELL MD (PCP) FRANCISCO LLANES MD May 02, 2019 11:06
--- NOTE | 2019-05-02 11:53 | RADIOLOGY IMAGING REPORT ---
FACILITY: [facility] PATIENT NAME: Harsh Melissa : 1955 MR: [id number] V: [id number] EXAM DATE: ORDERING PHYSICIAN: FRANCISCO LLAENS TECHNOLOGIST: Location: [facility] Patient: Harsh Melissa : 1955 Visit/Account:[id number] Date of Sevice: 05/02/2019 Exam type: CHEST PA LAT History: Nausea vomiting, cough and fever chest pain Comparison: October 27, 2016. Findings: A pacemaker battery pack projects over the left mid to upper thorax obscuring the underlying lung. T here are sternotomy sutures present and a prosthetic aortic valve. There is slight haziness over the left midlung field on the PA view. Otherwise no evidence of pulmonary consolidation pleural effusio ns or overt pulmonary edema. Cardiac silhouette is normal in size. Dual lead pacemaker noted IMPRESSION: 1. Slight haziness over the left midlung field although is partially disturbed by the pacemaker georgiana echo pack. This could represent chronic findings although a subtle area of airspace consolidation not excluded No evidence of overt pulmonary edema Report Dictated By: Mirna Morelos MD at 05/02/2019 11:46 AM Report E-Signed By: Mirna Morelos MD at 05/02/2019 11:48 AM WSN:[id number]
[2019-05-02] MEDS ORDERED: LEVOFLOXACIN/D5W*500 MG/100 ML 100 ML IVPB ONE (12:05)
[2019-05-02] MEDS ORDERED: cefTRIAXone(*) 2 GM VIAL 2 GM in NS(*) 0.9% 100 ML MINI-BAG 100 ML IVPB ONE (12:25)
[2019-05-02] MEDS ORDERED: DOXYCYCLINE HYCL 100 MG VIAL 100 MG in NS(*) 0.9% 250 ML BAG 250 ML IVPB ONE (13:00)
[2019-05-02 13:24] VITALS: BP 114/60
[2019-05-02] MEDS ORDERED: ACETAMINOPHEN 500 MG TAB PO PRN (15:20)
[2019-05-02] MEDS ORDERED: [UNRECOGNIZED DRUG - OTHER] IH PRN (15:20)
[2019-05-02] MEDS ORDERED: ALBUTEROL SULFATE IH PRN (15:20)
[2019-05-02] MEDS ORDERED: IPRATROPIUM IH PRN (15:20)
[2019-05-02] MEDS ORDERED: AZATHIOPRINE 50 MG PO SCH (15:20)
[2019-05-02] MEDS ORDERED: ALBUTEROL 2.5 MG/3 ML NEB NEB PRN (15:40)
[2019-05-02] MEDS ORDERED: COMBIVENT 4 GR INHALER IH PRN (15:40)
--- NOTE | 2019-05-02 15:48 | History & Physical ---
History of Present Illness Chief Complaint Cough and fever History of Present Illness This patient presented to the emergency room complaining of cough and fever. He reports this started in the last 24hrs. He also reports increased shortness of breath. History Problems: (1) ST elevation myocardial infarction (STEMI) Status: Chronic (2) Seizure disorder Status: Chronic (3) Lactic acidosis Status: Acute (4) COPD exacerbation Status: Chronic (5) Healthcare associated bacterial pneumonia Status: Chronic (6) Pulmonary hypertension Status: Chronic (7) Congestive heart failure (8) CAD (coronary artery disease) Status: Chronic (9) Valvular heart disease Status: Chronic (10) Benign hypertension (11) BARON (obstructive sleep apnea) Status: Chronic (12) DMII (diabetes mellitus, type 2) Status: Chronic (13) Hx of CABG Status: Chronic (14) S/P TAVR (transcatheter aortic valve replacement) Home Meds Active Scripts Flash Glucose Sensor (Freestyle Radha Sensor) 1 Each Kit, UNITS Q2WK, #2 12 Refills Prov:SHANNA MITCHELL MD 04/25/19 Flash Glucose Scanning [place] (Freestyle Radha [place]) 1 Each Each, UNIT TD DIRECTED, #2 Prov:SHANNA MITCHELL MD 04/25/19 Glipizide (GLIPIZIDE) 5 Mg Tablet, 1 TAB PO BID, #180 TAB 3 Refills Prov:SHANNA MITCHELL MD 04/08/19 Clopidogrel Bisulfate (PLAVIX) 75 Mg Tablet, 1 TAB PO QDAY, #90 TAB 3 Refills Prov:SHANNA MITCHELL MD 04/01/19 Budesonide/Formoterol Fumarate (SYMBICORT 80-4.5 MCG INHALER) 10.2 Gm Hfa.aer.ad, 2 PUFF IH BID, #1 INHALER 6 Refills Prov:SHANNA MITCHELL MD 02/10/19 Atorvastatin (LIPITOR) 80 Mg Tab, 1 TAB PO QDAY, #90 TAB 3 Refills Prov:SHANNA MITCHELL MD 02/05/19 Metformin Hcl (METFORMIN HCL ER) 500 Mg Tab.er.24, 2 TAB PO BID, #360 TAB 3 Refills Prov:SHANNA MITCHELL MD 01/02/19 Gabapentin (GABAPENTIN) 600 Mg Tablet, 600 MG PO BID, #180 TAB 2 Refills Prov:SHANNA MITCHELL MD 10/07/18 Prednisone 10 Mg Tab (PREDNISONE 10 MG TAB) 10 Mg Tablet, 10 MG PO QDAY, #1 TAB Prov:SHANNA MITCHELL MD 10/03/18 Cyclobenzaprine Hcl (CYCLOBENZAPRINE HCL) 10 Mg Tablet, 10 MG PO TID for Muscle Relaxant, #9 TAB 0 Refills Prov:SWATI SKINNER MD 07/06/18 Sitagliptin Phosphate (JANUVIA) 100 Mg Tablet, 100 MG PO QDAY, #90 TAB 4 Refills Prov:SHANNA MITCHELL MD 03/25/18 Ipratropium/Albuterol Sulfate (COMBIVENT RESPIMAT INHAL SPRAY) 4 Gm Aer.w.adap, 1 PUFF IH QID PRN for SHORTNESS OF BREATH, #2 INHALER 6 Refills Prov:SHANNA MITCHELL MD 11/08/17 Reported Medications Metoprolol Succinate (METOPROLOL SUCCINATE) 25 Mg Tab.er.24h, 1 TAB PO QDAY, TAB 11/07/17 Levetiracetam (KEPPRA) 500 Mg Tablet, 500 MG PO BID, TAB 07/11/17 Sulfamethoxazole/Trimet 800-160 Mg Tab (BACTRIM DS TABLET) 1 Each Tablet, 1 TAB PO M,W,F, TAB 07/11/17 Azathioprine (AZATHIOPRINE) 50 Mg Tablet, 50 MG PO DIRECTED 50 mg 2 tablets in the morning and 1.5 tablets in the evening 07/11/17 Aspirin (ASPIRIN) 81 Mg Tab.chew, 81 MG PO QDAY, TAB.CHEW 07/11/17 Discontinued Scripts Mupirocin Calcium (BACTROBAN) 15 Gm Cream..g., 0 TP BID, #15 GM Prov:SHANNA MITCHELL MD 10/07/18 Allergies: Coded Allergies: metformin (Verified Adverse Reaction, Severe, Lactic acidosis 10/24/16, 05/02/19) Patient History: FH: cancer BROTHER OR SISTER FH: diabetes mellitus BROTHER OR SISTER Hx Smoking: No Smoking Status: Former Smoker Exposure to Second Hand Smoke?: No Caffeine Intake: Coffee Caffeine/Cups Per Day: 4 Hx Alcohol Use: Yes Hx Substance Use Disorder: No Social Drug Use: Never Review of Systems All Systems Reviewed/Normal: Yes, Except as Noted Constitutional: Fever Respiratory: Shortness of Breath, Cough Exam Vital Signs Vital Signs Date Time Temp Pulse Resp B/P (MAP) Pulse Ox O2 Delivery O2 Flow Rate FiO2 05/02/19 13:36 94 Nasal Cannula 3.0 05/02/19 13:24 100.1 99 16 114/60 (78) Neuro: No Gross deficits Eyes: PERRLA Cardiovascular: Regular Rate and Rhythm Respiratory: Clear to Auscultation GI: Abd Soft and Non-Tender Extremities: No Edema Medical Decision Making Data Points Result Diagram: 05/02/19 1040 05/02/19 1040 Assessment and Plan Problems: (1) Bacterial pneumonia Assessment & Plan: He did present with fever and cough. His chest x-ray did show a possible area of consolidation. He has been started on empiric treatment with ceftriaxone and doxycycline. A repeat chest x-ray is ordered for the morning. (2) Lactic acidosis Status: Acute Assessment & Plan: He has a history of lactic acidosis secondary to metformin. It was discontinued on a prior admission, but apparently the medication was restarted. We have stooped the metformin and will hydrate him overnight. (3) COPD exacerbation Status: Chronic Assessment & Plan: He has been placed on nebulizers and IV steroids. (4) DMII (diabetes mellitus, type 2) Status: Chronic Assessment & Plan: He is on chronic treatment with metformin, Januvia, and glipizide. The metformin has been discontinued as above. The other medications have been held and he has been placed on sliding scale level #2. (5) Wegeners granulomatosis Status: Chronic Assessment & Plan: He is on chronic treatment with azathioprine and prednisone. The azathioprine has been held and he is receiving stress dose steroids as above. (6) Seizure Status: Chronic Assessment & Plan: He is on chronic treatment with Keppra. Copies to: SHANNA MITCHELL MD ; Venous Thromboembolism Antithrombotics Is Pt On Any Antithrombotics?: No Exam Sepsis Risk: No Definite Risk CRISELDA KINNEY DO May 02, 2019 15:48
[2019-05-02] MEDS: NS(*) 0.9% 1000 ML BAG 1,000 ML IV PRN (15:50)
[2019-05-02] MEDS: methylPREDNIS SUCC 125 MG/2ML IVP SCH (17:50)
[2019-05-02] MEDS: ALBUTEROL 2.5 MG/3 ML NEB NEB SCH (17:56)
[2019-05-02] MEDS: BUDESO/FORMOT 80/4.5 MCG 6.9GM INH SCH (17:56)
[2019-05-02 18:36] VITALS: BP 128/62
[2019-05-02] MEDS: HYPROMELLOSE 0.4% LUB 15ML BTL OU PRN ×2 (19:36→21:45)
[2019-05-02] MEDS ORDERED: BUDESONIDE IH SCH (21:00)
[2019-05-02] MEDS ORDERED: LEVETIRACETAM 500 MG PO SCH (21:00)
[2019-05-02] MEDS ORDERED: [UNRECOGNIZED DRUG - OTHER] IH SCH (21:00)
[2019-05-02] MEDS ORDERED: FORMOTEROL FUMARATE IH SCH (21:00)
[2019-05-02] MEDS ORDERED: levETIRAcetam 500 MG TAB PO SCH (21:00)
[2019-05-02] MEDS: GABAPENTIN 300 MG CAP PO SCH (21:22)
[2019-05-02] MEDS: INSULIN HUM LISPRO 100 UN/ML 3 ML VIAL SUBQ PRN (21:23)
[2019-05-02] MEDS: azaTHIOprine 50 MG TAB PO SCH (21:23)
[2019-05-02] MEDS ORDERED: DOXYCYCLINE HYCL 100 MG VIAL 100 MG in NS(*) 0.9% 250 ML BAG 250 ML IV SCH (22:30)
[2019-05-02 23:36] VITALS: BP 111/56
[2019-05-03] MEDS: methylPREDNIS SUCC 125 MG/2ML IVP SCH ×4 (00:13→17:58)
[2019-05-03 03:14] VITALS: BP 116/72
[2019-05-03] MEDS: ALBUTEROL 2.5 MG/3 ML NEB NEB SCH ×3 (05:12→18:36)
[2019-05-03] MEDS: BUDESO/FORMOT 80/4.5 MCG 6.9GM INH SCH ×2 (05:19→18:37)
[2019-05-03 05:39] LABS: PLATELET COUNT, AUTOMATED 123 K/uL (150-450)
[2019-05-03] MEDS: NS(*) 0.9% 1000 ML BAG 1,000 ML IV PRN (05:43)
--- NOTE | 2019-05-03 06:42 | RADIOLOGY IMAGING REPORT ---
FACILITY: [facility] PATIENT NAME: Harsh Melissa : 1955 MR: [id number] V: [id number] EXAM DATE: ORDERING PHYSICIAN: CRISELDA KINNEY TECHNOLOGIST: Location: [facility] Patient: Harsh Melissa : 1955 Visit/Account:[id number] Date of Sevice: 05/03/2019 AP CHEST 05/03/2019 6:00 AM. INDICATION: pneumonia Pneumonia. COMPARISON: Yesterday. FINDINGS: Low normal lung expansion. Hazy left midlung opacification is more apparent on today's examination, likely in part due to changes in positioning and technique. No pleural effusion or pneumothorax. Hear t size is normal. Dual-chamber pacer and aortic valve prosthesis remaining place. IMPRESSION: Persistent hazy opacification over the left midlung. Report Dictated By: Dennis Berg MD at 05/03/2019 6:36 AM Report E-Signed By: Dennis Berg MD at 05/03/2019 6:38 AM WSN:[id number]
[2019-05-03 07:15] VITALS: BP 120/68
[2019-05-03] MEDS: CLOPIDOGREL BISULFATE 75MG TAB PO SCH (08:57)
[2019-05-03] MEDS: METOPROLOL SUCC XL 25 MG TABCR PO SCH (08:57)
[2019-05-03] MEDS: azaTHIOprine 50 MG TAB PO SCH ×2 (08:58→20:37)
[2019-05-03] MEDS: GABAPENTIN 300 MG CAP PO SCH ×2 (09:00→20:36)
[2019-05-03] MEDS ORDERED: FURO-45 PO (09:09)
[2019-05-03 11:59] VITALS: BP 124/71
[2019-05-03] MEDS: cefTRIAXone 2 GM VIAL IVP SCH (12:01)
[2019-05-03] MEDS: levETIRAcetam 500 MG TAB PO SCH ×2 (12:10→20:37)
[2019-05-03] MEDS: lamoTRIgine 100 MG TAB PO SCH ×2 (12:10→20:37)
[2019-05-03] MEDS: INSULIN HUM LISPRO 100 UN/ML 3 ML VIAL SUBQ PRN ×3 (12:11→20:36)
[2019-05-03] MEDS: DOXYCYCLINE HYCL 100 MG VIAL 100 MG in NS(*) 0.9% 250 ML BAG 250 ML IV SCH (12:15)
[2019-05-03] MEDS ORDERED: GABA-533 PO (13:00)
[2019-05-03] MEDS ORDERED: PRE1 PO (13:00)
[2019-05-03] MEDS ORDERED: PRED-317 PO (13:00)
[2019-05-03] MEDS ORDERED: ATOR40TA69 PO (13:00)
[2019-05-03] MEDS ORDERED: LAMO100T52 PO (13:01)
--- NOTE | 2019-05-03 13:38 | Hospitalist Progress Note ---
Subjective Progress Notes Subjective The patient continues to have episodes of feeling hot and chilling. No measured fever since admission so far. Physical Exam Vital Signs Date Time Temp Pulse Resp B/P (MAP) Pulse Ox O2 Delivery O2 Flow Rate FiO2 05/03/19 07:15 97.5 88 18 120/68 (85) 97 Nasal Cannula 3.0 Intake and Output 05/03/19 07:00 Intake Total 2773 ml Balance 2773 ml Intake Oral 850 ml IV Total 1923 ml # Voids 3 General Appearance: Alert, Awake, No Acute Distress Neuro: No Gross deficits Eyes: PERRLA Cardiovascular: Regular Rate and Rhythm, No Edema Respiratory: Other (Decreased BS in L upper and mid-lung stewart. ) GI: Soft and Non-Tender Extremities: Warm, Perfused Integumentary: Skin Intact without Lesion / Mass Psych: Appropriate Mood & Affect Result Diagram: 05/03/1952605/03/19526 Imaging FACILITY: [facility] PATIENT NAME: Harsh Melissa : 1955 MR: [id number] V: [id number] EXAM DATE: ORDERING PHYSICIAN: CRISELDA KINNEY TECHNOLOGIST: Location: [facility] Patient: Harsh Melissa : 1955 Visit/Account:[id number] Date of Sevice: 05/03/2019 AP CHEST 05/03/2019 6:00 AM. INDICATION: pneumonia Pneumonia. COMPARISON: Yesterday. FINDINGS: Low normal lung expansion. Hazy left midlung opacification is more apparent on today's examination, likely in part due to changes in positioning and technique. No pleural effusion or pneumothorax. Heart size is normal. Dual-chamber pacer and aortic valve prosthesis remaining place. IMPRESSION: Persistent hazy opacification over the left midlung. Report Dictated By: Dennis Berg MD at 05/03/2019 6:36 AM Report E-Signed By: Dennis Berg MD at 05/03/2019 6:38 AM WSN:[id number] Assessment and Plan Problems: (1) Bacterial pneumonia Assessment & Plan: He did present with fever and cough. His chest x-ray does show an area of consolidation. He has been started on empiric treatment with ceftriaxone and doxycycline. The patient is on immunosuppressants. For this reason his is on Bactrim DS one tablet Mon-Wed-Fri which will be continued as well. Will monitor closely. (2) Thrombocytopenia Status: Acute Assessment & Plan: Platelets mildly decreased today. Continue to monitor. (3) Lactic acidosis Status: Acute Assessment & Plan: He has a history of lactic acidosis secondary to metformin. It was discontinued on a prior admission, but apparently the medication was restarted. We have stopped the metformin and will hydrate him overnight. (4) COPD exacerbation Status: Chronic Assessment & Plan: He has been placed on nebulizers and IV steroids. (5) DMII (diabetes mellitus, type 2) Status: Chronic Assessment & Plan: He is on chronic treatment with metformin, Januvia, and glipizide. The metformin has been discontinued as above. The other medications were held on admission and he was placed on sliding scale level #2. Will add back his home medications except for metformin which has been discontinued due to lactic acidosis, recurrent. The patient takes gabapentin for his diabetic neuropathy. He takes one 600mg capsule at HS. (6) Wegeners granulomatosis Status: Chronic Assessment & Plan: He is on chronic treatment with azathioprine and prednisone. The azathioprine has been held and he is receiving stress dose steroids as above. His current home dose of prednisone is 8mg daily. (7) Seizure Status: Chronic Assessment & Plan: He is on chronic treatment with Keppra 250 mg bid and lamotrigine 100mg bid. The patient was recently started on lamotrigine and his Keppra is now being tapered. He sees Dr. Renee. (8) Hyperlipidemia Status: Chronic Assessment & Plan: Continue atorvastatin 40mg at HS. Time Spent on Plan of Care: < 30 min Exam Sepsis Risk: No Definite Risk CAROLANN SHERMAN MD May 03, 2019 13:38
[2019-05-03 19:34] VITALS: BP 127/71
[2019-05-04] MEDS: methylPREDNIS SUCC 125 MG/2ML IVP SCH ×3 (00:21→11:33)
[2019-05-04] MEDS: DOXYCYCLINE HYCL 100 MG VIAL 100 MG in NS(*) 0.9% 250 ML BAG 250 ML IV SCH ×2 (00:22→11:52)
[2019-05-04 00:25] VITALS: BP 102/58
[2019-05-04] MEDS: ALBUTEROL 2.5 MG/3 ML NEB NEB SCH ×3 (05:16→17:36)
[2019-05-04] MEDS: BUDESO/FORMOT 80/4.5 MCG 6.9GM INH SCH ×2 (05:30→17:36)
[2019-05-04 05:48] LABS: PLATELET COUNT, AUTOMATED 133 K/uL (150-450)
[2019-05-04 08:25] VITALS: BP 135/87
[2019-05-04] MEDS: GABAPENTIN 300 MG CAP PO SCH (08:37)
[2019-05-04] MEDS: CLOPIDOGREL BISULFATE 75MG TAB PO SCH (08:37)
[2019-05-04] MEDS: METOPROLOL SUCC XL 25 MG TABCR PO SCH (08:37)
[2019-05-04] MEDS: lamoTRIgine 100 MG TAB PO SCH (08:38)
[2019-05-04] MEDS: levETIRAcetam 500 MG TAB PO SCH (08:38)
[2019-05-04] MEDS: azaTHIOprine 50 MG TAB PO SCH (08:39)
[2019-05-04] MEDS: INSULIN HUM LISPRO 100 UN/ML 3 ML VIAL SUBQ PRN ×3 (08:40→17:03)
[2019-05-04] MEDS: HYPROMELLOSE 0.4% LUB 15ML BTL OU PRN (08:41)
[2019-05-04] MEDS ORDERED: GABAPENTIN 300 MG CAP PO SCH (09:00)
--- NOTE | 2019-05-04 10:37 | Medical Nutrition Therapy ---
Nutrition Anthropometrics Height (Inches): 71 Weight (Pounds): 199 Weight (Calculated Kilograms): 90.265 BMI: 27.7 [place] Nutrition Score: Adequate [place] Nutrition Risk Score: 19 Dietary Referral Nutrition Risk Factors: Nutrition Risk Comment: Physical Findings Physical Appearance: Overweight BMI 25-29 Skin Appearance Skin Appearance: Edema Edema Location Modifier: Edema Location: Type of Edema: Degree of Edema: Gastrointestinal Symptoms GI Symtoms: Tube Present: Bowel Sounds: Recent Bowel Pattern: Stool Characteristics: Nutritional Diagnosis Nutritional Risk Acuity 2: Blood Glucose > 300mg/dl Nutritional Risk Acuity 4: Good Appetite, Modified Diet Past Medical History: Wegeners granulomatosis, T2DM, seisure, CABG, hepatic encephalopathy, COPD Nutritional Acuity: 2-Moderate Nutrition Diagnosis: Inconsistent Carb. Intake Nutrition Etiology: Psychological Issues Nutrition Problem/Etiology/Sym: AEB RBG 329 Energy Requirement: 2240 (MSJ) Protein Requirement: 90 (1 gm/kg) Fluid Requirement: 2240 (1ml/kcal) Diet Type: Diabetic Nutrition Intervention: Cont diet as ordered, Encourage intake Nutrition Monitoring & Eval Nutrition Goals: Eat 75-100% Meal, Drink > 2 liters/day RD Patient Assessment Time: [address] Assessment Type: RD Assessment Patient Nutrition Acuity: 2-Moderate Follow Up Date: May 09, 2019 Nutritional Comment: 04/03 Pt admitted with pneumonia. Pt has dx T2DM. RBG elevated up to 329. Pt is recieving insulin. Pt on diabetic diet and eating 75-100% of meals. BNP 260, Hgb 12, Hct 36.8, aAlb 3.7. Will ocnt to monitor and encourage intake. SARA ARMAS May 04, 2019 10:37
--- NOTE | 2019-05-04 10:42 | Antimicrobial Stewardship ---
Antimicrobial Time Out Antimicrobial Stewardship MD Service: Hospitalist Indications: CAP Antimicrobial Used Rocephin and Zithromax; he is also on Bactrim DS due to immunosuppressant use. Start Date: May 02, 2019 Culture Results: No Eligible for PO Conversion Eligable for PO Conversion: No Reviewed with Provider Date Reviewed w/ Provider: May 04, 2019 (Treat for 5-7 days) CAROLANN BEASLEY May 04, 2019 10:42
--- NOTE | 2019-05-04 11:24 | Antimicrobial Stewardship ---
Antimicrobial Time Out Comments Comments Patient is on doxycycline and not Zithromax as previously reported. CAROLANN BEASLEY May 04, 2019 11:24
[2019-05-04] MEDS: cefTRIAXone 2 GM VIAL IVP SCH (11:34)
[2019-05-04 14:50] VITALS: BP 143/90
[2019-05-04] MEDS ORDERED: CEF300 PO (15:15)
[2019-05-04] MEDS ORDERED: GABA-533 PO (15:15)
[2019-05-04] MEDS ORDERED: DOXY-181 PO (15:15)
[2019-05-04] MEDS ORDERED: PRED-1 PO (15:15)
--- NOTE | 2019-05-04 15:26 | Hospitalist Depart ---
Discharge Summary Reason for Hosp/Final Diag: (1) Bacterial pneumonia Hospital Course & Plan: He did present with fever and cough. His chest x-ray does show an area of consolidation. He was started on empiric treatment with ceftriaxone and doxycycline. The patient is on immunosuppressants. For this reason his is on Bactrim DS one tablet Sun-Sun-Sun was continued as well. He is afebrile, but still requiring O2. He will go home on Omnicef and Azithromycin. He will need a f/u CXR to look for resolution. (2) Thrombocytopenia Status: Acute Hospital Course & Plan: Platelets mildly decreased today. Continue to monitor. 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 He has been advised that it might not be the best medication for h im. It has been stopped. (4) COPD exacerbation Status: Chronic Hospital Course & Plan: Lungs clear. Steroid taper. (5) DMII (diabetes mellitus, type 2) Status: Chronic Hospital Course & Plan: He is on chronic treatment with metformin, Januvia, and glipizide. The metformin has been discontinued as above. The other medications were held on admission and he was placed on sliding scale level #2. Will add back his home medications except for metformin which has been discontinued due to lactic acidosis, recurrent. The patient takes gabapentin for his diabetic oly ropathy. He takes one 300 bid. (6) Wegeners granulomatosis Status: Chronic Hospital Course & Plan: He is on chronic treatment with azathioprine and prednisone. The azathioprine had been held and he was receiving stress dose steroids. He will go home on a 4 steroid taper back to his current home dose of prednisone is 8mg daily. He will resume azathioprine. (7) Seizure Status: Chronic Hospital Course & Plan: He is on chronic treatment with Keppra 250 mg bid and l amotrigine 100mg bid. The patient was recently started on lamotrigine and his Keppra is now being tapered. He sees Dr. Renee. (8) Hyperlipidemia Status: Chronic Hospital Course & Plan: Continue atorvastatin 40mg at HS. Departure Weight (Pounds): 199 Weight (Ounces): 4.0 Result Diagram: 05/04/19 0508 05/04/19 0508 Item Value Date Time Lactate 4.4 mmol/L *H 05/02/19 1040 Lactate 2.4 mmol/L H 05/02/19 1540 B-Type Natriuretic Peptide 260 pg/ml H 05/02/19 1040 Troponin I < 0.012 ng/ml 05/02/19 1040 Alkaline Phosphatase 88 U/L 05/02/19 1040 Alanine Aminotransferase (ALT/SGPT) 55 U/L 05/02/19 1040 Aspartate Amino Transf (AST/SGOT) 29 U/L 05/02/19 1040 Total Bilirubin 1.0 mg/dl 05/02/19 1040 Lactate 1.4 mmol/L 05/03/19 0527 Hemoglobin 14.0 g/dL 05/02/19 1040 Hemoglobin 13.0 g/dL L 05/03/19 05 Hemoglobin 12.0 g/dL L 05/04/19 0508 Neutrophils (%) (Auto) 92.8 % H 05/04/19 0508 Neutrophils (%) (Auto) 91.4 % H 05/03/19 0527 Neutrophils (%) (Auto) 80.5 % H 05/02/19 1040 Platelet Count 166 K/uL 05/02/19 1040 Platelet Count 123 K/uL L 05/03/19 0527 Platelet Count 133 K/uL L 05/04/19 0508 Urine WBC 1 /HPF 05/02/19 1149 Urine RBC 3 /HPF 05/02/19 1149 Urine Glucose (UA) 50 mg/dL H 05/02/19 1149 Urine Ketones Trace mg/dL 05/02/19 1149 Influenza Virus Type A (PCR) Negative 05/02/19 1058 Influenza Virus Type B (PCR) Negative 05/02/19 1058 Blood cultures without growth since 05/02 x2 Imaging 05/03/19 CXR - Persistent hazy opacification over the left midlung. 05/02/19 CXR - 1. Slight haziness over the left midlung field although is partially disturbed by the pacemaker battery pack. This could represent chronic findings although a subtle area of airspace consolidation not excluded Condition: Improved Discharge Instructions Home Meds Active Scripts Prednisone 10 Mg Tab (PREDNISONE 10 MG TAB) 10 Mg Tablet, 10 MG PO BID, #6 TAB 1 pill twice a day x2 days, then 0.5 pill twice a day x2 days, then resume previous taper Prov:LENNY GRIFFIN MD 05/04/19 Doxycycline Hyclate (DOXYCYCLINE HYCLATE) 100 Mg Capsule, 100 MG PO BID, #14 CAPSULE Prov:LENNY GRIFFIN MD 05/04/19 Cefdinir 300 Mg Cap (OMNICEF 300 MG CAP (OR EQUIV)) 300 Mg Cap, 300 MG PO BID, #14 CAP Prov:LENNY GRIFFIN MD 05/04/19 Gabapentin (GABAPENTIN) 600 Mg Tablet, 300 MG PO BID, #180 TAB 2 Refills Prov:LENNY GRIFFIN MD 05/04/19 Flash Glucose Sensor (Freestyle Radha Sensor) 1 Each Kit, UNITS Q2WK, #2 12 Refills Prov:SHANNA MITCHELL MD 04/25/19 Flash Glucose Scanning Ider (Freestyle Radha Ider) 1 Each Each, UNIT TD DIRECTED, #2 Prov:SHANNA MITCHELL MD 04/25/19 Glipizide (GLIPIZIDE) 5 Mg Tablet, 1 TAB PO BID, #180 TAB 3 Refills Prov:SHANNA MITCHELL MD 04/08/19 Clopidogrel Bisulfate (PLAVIX) 75 Mg Tablet, 1 TAB PO QDAY, #90 TAB 3 Refills Prov:SHANNA MITCHELL MD 04/01/19 Budesonide/Formoterol Fumarate (SYMBICORT 80-4.5 MCG INHALER) 10.2 Gm Hfa.aer.ad, 2 PUFF IH BID, #1 INHALER 6 Refills Prov:SHANNA MITCHELL MD 02/10/19 Cyclobenzaprine Hcl (CYCLOBENZAPRINE HCL) 10 Mg Tablet, 10 MG PO TID for Muscle Relaxant, #9 TAB 0 Refills Prov:SWATI SKINNER MD 07/06/18 Sitagliptin Phosphate (JANUVIA) 100 Mg Tablet, 100 MG PO QDAY, #90 TAB 4 Refills Prov:SHANNA MITCHELL MD 03/25/18 Ipratropium/Albuterol Sulfate (COMBIVENT RESPIMAT INHAL SPRAY) 4 Gm Aer.w.adap, 1 PUFF IH QID PRN for SHORTNESS OF BREATH, #2 INHALER 6 Refills Prov:SHANNA MITCHELL MD 11/08/17 Reported Medications Lamotrigine (LAMOTRIGINE) 100 Mg Tablet, 100 MG PO BID 05/03/19 Prednisone (PREDNISONE) 1 Mg Tab, 3 MG PO DAILY, TAB Take with a 5mg tab for a total of 8mg daily. 05/03/19 Atorvastatin Calcium (ATORVASTATIN CALCIUM) 40 Mg Tablet, 1 TAB PO HS, TAB 05/03/19 Prednisone (Prednisone) 5 Mg Tablet, 5 MG PO DAILY Take with 3-1mg tabs for a total of 8mg daily. 05/03/19 Furosemide (FUROSEMIDE) 20 Mg Tablet, 1 TAB PO QDAY, TAB 05/03/19 Metoprolol Succinate (METOPROLOL SUCCINATE) 25 Mg Tab.er.24h, 1 TAB PO QDAY, TAB 11/07/17 Levetiracetam (KEPPRA) 500 Mg Tablet, 250 MG PO BID, TAB 07/11/17 Sulfamethoxazole/Trimet 800-160 Mg Tab (BACTRIM DS TABLET) 1 Each Tablet, 1 TAB PO M,W,F, TAB 07/11/17 Azathioprine (AZATHIOPRINE) 50 Mg Tablet, 50 MG PO DIRECTED 50 mg 2 tablets in the morning and 1.5 tablets in the evening 07/11/17 Aspirin (ASPIRIN) 81 Mg Tab.chew, 81 MG PO QDAY, TAB.CHEW 07/11/17 Discontinued Scripts Metformin Hcl (METFORMIN HCL ER) 500 Mg Tab.er.24, 2 TAB PO BID, #360 TAB 3 Refills Prov:SHANNA MITCHELL MD 01/02/19 Atorvastatin (LIPITOR) 80 Mg Tab, 1 TAB PO QDAY, #90 TAB 3 Refills Prov:SHANNA MITCHELL MD 02/05/19 Gabapentin (GABAPENTIN) 600 Mg Tablet, 600 MG PO BID, #180 TAB 2 Refills Prov:SHANNA MITCHELL MD 10/07/18 Prednisone 10 Mg Tab (PREDNISONE 10 MG TAB) 10 Mg Tablet, 10 MG PO QDAY, #1 TAB Prov:SHANNA MITCHELL MD 10/03/18 Mupirocin Calcium (BACTROBAN) 15 Gm Cream..g., 0 TP BID, #15 GM Prov:SHANNA MITCHELL MD 10/07/18 Diet: Diabetic Activity: As Tolerated Special Instructions: follow up with your PCP in 1-2 weeks. Set up a CXR to follow up the pneumonia in 6 weeks. Wear O2 at 2 liters until cleared by your PCP. go to the ER for worsening cough, fevers, chills. Copies to: SHANNA MITCHELL MD ; Venous Thromboembolism Antithrombotics Is Pt On Any Antithrombotics?: No LENNY GRIFFIN MD May 04, 2019 15:26
[2019-05-05] MEDS ORDERED: TRIMETH/SULFA DS 160-800MG TAB PO SCH (09:00)
[2019-05-05] MEDS ORDERED: GABAPENTIN 300 MG CAP PO SCH (09:00)
[2019-05-06] MEDS ORDERED: INFLUENZA VIRUS VAC 0.5ML SYR IM ONLY ONE (09:00)
== END 2019-05-04 17:55 | disposition home or self-care (01) | DRG 190 ==
LOC: ER 10:54 → MED 12:47
PROVIDERS: ADMIT Family Medicine; ATTEND Family Medicine
DX: J44.0 Chronic obstructive pulmonary disease with (acute) lower respiratory infection (principal); J18.9 Pneumonia, unspecified organism; E87.2 Acidosis; M31.30 Wegener's granulomatosis without renal involvement; J44.1 Chronic obstructive pulmonary disease with (acute) exacerbation; G40.909 Epilepsy, unspecified, not intractable, without status epilepticus; I27.20 Pulmonary hypertension, unspecified; I50.9 Heart failure, unspecified; I25.10 Atherosclerotic heart disease of native coronary artery without angina pectoris; T38.3X5A Adverse effect of insulin and oral hypoglycemic [antidiabetic] drugs, initial encounter; E78.5 Hyperlipidemia, unspecified; D69.6 Thrombocytopenia, unspecified; E11.40 Type 2 diabetes mellitus with diabetic neuropathy, unspecified; G47.33 Obstructive sleep apnea (adult) (pediatric); I25.2 Old myocardial infarction; Z95.1 Presence of aortocoronary bypass graft; Z79.84 Long term (current) use of oral hypoglycemic drugs; Z92.25 Personal history of immunosuppression therapy
CPT/HCPCS: 36415; 36416; 71045; 71046; 81001; 82040; 82247; 82310; 82374; 82435; 82565; 82947; 82948; 83605; 83880; 84075; 84132; 84155; 84295; 84450; 84460; 84484; 84520; 85025; 87040; 87502; 93005; 94640; 96361; 96365; 96368; 96375; J0696; J2405; J2930; J3490; J3535; J7030; J7040; J7050; J7500; J7613

== ENCOUNTER → 2019-06-12 | Outpatient (CLI) | payer OTHER ==
[2016-10-27 11:06] VITALS: BMI 31.1
[~2019-06-12] MED LIST changes: +ATOR40TA69 PO; +CEF300 PO; +DOXY-181 PO; +LAMO100T52 PO; +PRED-317 PO
[2019-06-12 13:18] LABS: PLATELET COUNT, AUTOMATED 181 K/uL (150-450)
--- NOTE | 2019-06-12 14:34 | RADIOLOGY IMAGING REPORT ---
FACILITY: [facility] PATIENT NAME: Harsh Melissa : 1955 MR: [id number] V: [id number] EXAM DATE: ORDERING PHYSICIAN: SHANNA MITCHELL TECHNOLOGIST: Location: [facility] Patient: Harsh Melissa : 1955 Visit/Account:[id number] Date of Sevice: 06/12/2019 CHEST PA LAT HISTORY: Evaluate for pneumonia. COMPARISON: May 03, 2019. FINDINGS: Cardiomediastinal contours: The heart is enlarged. There is been sternotomy for CABG. There is an a ortic valve prosthesis that was placed percutaneously. There is a cardiac pacemaker in the left delt opectoral groove. There are coronary artery stents. Lungs and pleura: There is no finding of an infiltrate, lymphadenopathy or pleural effusion. Bones/soft tissues: There are no findings of a fracture. IMPRESSION: 1. Cardiomegaly without infiltrate or congestive heart failure. 2. Status post sternotomy for CABG, placement of percutaneous aortic valve and cardiac pacemaker. Report Dictated By: Rob Wren MD at 06/12/2019 2:26 PM Report E-Signed By: Rob Wren MD at 06/12/2019 2:27 PM WSN:[email or web address]
== END ==
LOC: LAB 12:40
PROVIDERS: ATTEND Internal Medicine
DX: J15.9 Unspecified bacterial pneumonia (principal); I51.7 Cardiomegaly; Z95.1 Presence of aortocoronary bypass graft; Z95.0 Presence of cardiac pacemaker; Z95.2 Presence of prosthetic heart valve
CPT/HCPCS: 36415; 71046; 82040; 82247; 82310; 82374; 82435; 82565; 82947; 83036; 83605; 84075; 84132; 84155; 84295; 84450; 84460; 84520; 85025

== ENCOUNTER → 2019-06-12 | Outpatient (CLI) | payer OTHER ==
[2016-10-27 11:06] VITALS: BMI 31.1
== END ==
LOC: LAB 13:31
PROVIDERS: ATTEND Internal Medicine Rheumatology
DX: M31.30 Wegener's granulomatosis without renal involvement (principal); Z79.899 Other long term (current) drug therapy
CPT/HCPCS: 85651; 86140

== ENCOUNTER → 2019-07-01 | Outpatient (CLI) | payer OTHER ==
[2016-10-27 11:06] VITALS: BMI 31.1
[~2019-07-01] MED LIST changes: +EMPA10TA PO
[2019-07-01 09:04] LABS: LDL CHOLESTEROL 53 mg/dl
== END ==
LOC: LAB 08:07
PROVIDERS: ATTEND Internal Medicine
DX: I25.810 Atherosclerosis of coronary artery bypass graft(s) without angina pectoris (principal); I35.0 Nonrheumatic aortic (valve) stenosis; I35.1 Nonrheumatic aortic (valve) insufficiency; E78.00 Pure hypercholesterolemia, unspecified; I34.0 Nonrheumatic mitral (valve) insufficiency; I50.33 Acute on chronic diastolic (congestive) heart failure; I44.2 Atrioventricular block, complete
CPT/HCPCS: 36415; 82040; 82247; 82310; 82374; 82435; 82465; 82565; 82947; 83718; 84075; 84132; 84155; 84295; 84450; 84460; 84478; 84520; 85027